=== PATIENT | female | born 1990 | race Caucasian/White ===

== ENCOUNTER 2021-09-06 12:14 | Inpatient (IN) | payer OTHER ==
[2021-09-06] MEDS ORDERED: SODIUM CHLORIDE 0.9% 1,000 ML IV STA ×2 (12:31→12:36)
--- NOTE | 2021-09-06 12:36 | ED ---
Overdose HPI - General Chief Complaint: Overdose Stated Complaint: Withdraws Time Seen by Provider: 09/06/21 12:20 Source: patient, EMS, RN notes reviewed Mode of arrival: EMS Limitations: altered mental status - History of Present Illness Initial Comments: 30-year-old female brought in by EMS from [facility] for possible overdose. Patient was responding only to painful stimulus and some verbal stimulus. She did maintain her vital functions however. No other information available at this time MD Complaint: other - Related Data Home Medications Medication Instructions Recorded Confirmed Acetaminophen Tab [Tylenol] 650 mg PO TID PRN 09/06/21 09/06/21 Calcium/Magnesium/Zinc/Vitamin D3 1 tab PO TID 09/06/21 09/06/21 334/134/5mg Chlorpheniramine Maleate 4 mg PO Q4H PRN 09/06/21 09/06/21 [Chlor-Trimeton] Ibuprofen [Motrin Ib] 600 mg PO Q6H PRN 09/06/21 09/06/21 Zofran 2mg/Ml Im Solution 4 mg IM Q6H PRN 09/06/21 09/06/21 cloNIDine HCL [Catapres] 0.1 mg PO Q4H PRN 09/06/21 09/06/21 ondansetron HCL [Zofran] 8 mg PO Q6H PRN 09/06/21 09/06/21 traZODone HCL 50 - 150 mg PO HS PRN 09/06/21 09/06/21 Allergies Allergy/AdvReac Type Severity Reaction Status Date / Time No Known Allergies Allergy Verified 09/06/21 14:08 Review of Systems ROS Statement: Those systems with pertinent positive or pertinent negative responses have been documented in the HPI. ROS Other: All systems not noted in ROS Statement are negative. Limitations: ROS unobtainable due to patients medical condition Past Medical History Past Medical History: No Reported History History of Any Multi-Drug Resistant Organisms: None Reported Past Surgical History: No Surgical Hx Reported Past Psychological History: No Psychological Hx Reported Smoking Status: Unknown if ever smoked Past Alcohol Use History: None Reported Past Drug Use History: None Reported General Exam - General Exam Comments Initial Comments: This is a well-developed well-nourished female who does respond to verbal questions and stimulus. She is unable or will not answer questions however Limitations: altered mental status General appearance: alert, lethargic Head exam: Present: atraumatic, normocephalic, normal inspection Eye exam: Present: normal appearance, PERRL, EOMI. Absent: scleral icterus, conjunctival injection, periorbital swelling ENT exam: Present: mucous membranes dry Neck exam: Present: normal inspection, full ROM, other (Stridor JVD or bruits). Absent: tenderness, meningismus, lymphadenopathy Respiratory exam: Present: normal lung sounds bilaterally. Absent: respiratory distress, wheezes, rales, rhonchi, stridor Cardiovascular Exam: Present: regular rate, normal rhythm, normal heart sounds. Absent: systolic murmur, diastolic murmur, rubs, gallop, clicks GI/Abdominal exam: Present: soft, normal bowel sounds. Absent: distended, tenderness, guarding, rebound, rigid Rectal exam: Present: deferred Extremities exam: Present: normal inspection, full ROM, normal capillary refill. Absent: tenderness, pedal edema, joint swelling, calf tenderness Back exam: Present: normal inspection Neurological exam: Present: alert, altered, CN II-XII intact Psychiatric exam: Present: depressed, flat affect Skin exam: Present: warm, dry, intact, normal color. Absent: rash Course Vital Signs 09/06/21 09/06/21 09/06/21 12:23 13:26 14:00 Temperature 98.1 F Pulse Rate 72 63 70 Respiratory 16 16 16 Rate Blood Pressure 153/77 125/83 132/94 O2 Sat by Pulse 95 96 96 Oximetry Medical Decision Making - Medical Decision Making Patient is more alert and sweats earlier however she is still demonstrating evidence of some disorientation of ideas. The drug screen is negative except for marijuana. She is demonstrating nausea vomiting I did discuss case with Dr. Vu patient be admitted with psychiatric consult tomorrow. - Lab Data Result diagrams: 09/06/21 13:30 09/06/21 13:30 Lab Results 09/06/21 09/06/21 09/06/21 Range/Units 13:00 13:00 13:30 WBC 15.2 H (3.8-10.6) k/uL RBC 5.41 H (3.80-5.40) m/uL Hgb 15.2 (11.4-16.0) gm/dL Hct 45.7 (34.0-46.0) % MCV 84.6 (80.0-100.0) fL MCH 28.1 (25.0-35.0) pg MCHC 33.2 (31.0-37.0) g/dL RDW 12.7 (11.5-15.5) % Plt Count 373 (150-450) k/uL MPV 6.8 Neutrophils % 86 % Lymphocytes % 9 % Monocytes % 3 % Eosinophils % 1 % Basophils % 0 % Neutrophils # 13.1 H (1.3-7.7) k/uL Lymphocytes # 1.4 (1.0-4.8) k/uL Monocytes # 0.5 (0-1.0) k/uL Eosinophils # 0.1 (0-0.7) k/uL Basophils # 0.0 (0-0.2) k/uL PT (9.0-12.0) sec INR (<1.2) Sodium (137-145) mmol/L Potassium (3.5-5.1) mmol/L Chloride (98-107) mmol/L Carbon Dioxide (22-30) mmol/L Anion Gap mmol/L BUN (7-17) mg/dL Creatinine (0.52-1.04) mg/dL Est GFR (CKD-EPI)AfAm (>60 ml/min/1.73 sqM) Est GFR (CKD-EPI)NonAf (>60 ml/min/1.73 sqM) Glucose (74-99) mg/dL Plasma Lactic Acid Eduardo (0.7-2.0) mmol/L Calcium (8.4-10.2) mg/dL Total Bilirubin (0.2-1.3) mg/dL AST (14-36) U/L ALT (4-34) U/L Alkaline Phosphatase (38-126) U/L Total Protein (6.3-8.2) g/dL Albumin (3.5-5.0) g/dL Urine HCG, Qual Not Detected (Not Detectd) Salicylates mg/dL Urine Opiates Screen Not Detected (NotDetected) Ur Oxycodone Screen Not Detected (NotDetected) Urine Methadone Screen Not Detected (NotDetected) Ur Propoxyphene Screen Not Detected (NotDetected) Acetaminophen ug/mL Ur Barbiturates Screen Not Detected (NotDetected) U Tricyclic Antidepress Not Detected (NotDetected) Ur Phencyclidine Scrn Not Detected (NotDetected) Ur Amphetamines Screen Not Detected (NotDetected) U Methamphetamines Scrn Not Detected (NotDetected) U Benzodiazepines Scrn Not Detected (NotDetected) Urine Cocaine Screen Not Detected (NotDetected) U Marijuana (THC) Screen Detected H (NotDetected) Serum Alcohol mg/dL 09/06/21 09/06/21 09/06/21 Range/Units 13:30 13:30 13:30 WBC (3.8-10.6) k/uL RBC (3.80-5.40) m/uL Hgb (11.4-16.0) gm/dL Hct (34.0-46.0) % MCV (80.0-100.0) fL MCH (25.0-35.0) pg MCHC (31.0-37.0) g/dL RDW (11.5-15.5) % Plt Count (150-450) k/uL MPV Neutrophils % % Lymphocytes % % Monocytes % % Eosinophils % % Basophils % % Neutrophils # (1.3-7.7) k/uL Lymphocytes # (1.0-4.8) k/uL Monocytes # (0-1.0) k/uL Eosinophils # (0-0.7) k/uL Basophils # (0-0.2) k/uL PT 12.3 H (9.0-12.0) sec INR 1.2 H (<1.2) Sodium 138 (137-145) mmol/L Potassium 3.3 L (3.5-5.1) mmol/L Chloride 101 (98-107) mmol/L Carbon Dioxide 25 (22-30) mmol/L Anion Gap 12 mmol/L BUN 20 H (7-17) mg/dL Creatinine 0.49 L (0.52-1.04) mg/dL Est GFR (CKD-EPI)AfAm >90 (>60 ml/min/1.73 sqM) Est GFR (CKD-EPI)NonAf >90 (>60 ml/min/1.73 sqM) Glucose 123 H (74-99) mg/dL Plasma Lactic Acid Eduardo 1.6 (0.7-2.0) mmol/L Calcium 9.6 (8.4-10.2) mg/dL Total Bilirubin 1.8 H (0.2-1.3) mg/dL AST 22 (14-36) U/L ALT 17 (4-34) U/L Alkaline Phosphatase 80 (38-126) U/L Total Protein 7.6 (6.3-8.2) g/dL Albumin 4.8 (3.5-5.0) g/dL Urine HCG, Qual (Not Detectd) Salicylates <1.0 mg/dL Urine Opiates Screen (NotDetected) Ur Oxycodone Screen (NotDetected) Urine Methadone Screen (NotDetected) Ur Propoxyphene Screen (NotDetected) Acetaminophen <10.0 ug/mL Ur Barbiturates Screen (NotDetected) U Tricyclic Antidepress (NotDetected) Ur Phencyclidine Scrn (NotDetected) Ur Amphetamines Screen (NotDetected) U Methamphetamines Scrn (NotDetected) U Benzodiazepines Scrn (NotDetected) Urine Cocaine Screen (NotDetected) U Marijuana (THC) Screen (NotDetected) Serum Alcohol <10 mg/dL - EKG Data -: EKG Interpreted by Me EKG shows normal: sinus rhythm EKG Comments: Sinus rhythm rate 65 ME interval 114 QRS 90 QT since QTC 432/449 this is a normal-appearing EKG - Radiology Data Radiology results: report reviewed (Imaging reviewed no acute findings.), image reviewed Disposition Clinical Impression: Drug overdose, Altered mental status, Dehydration Disposition: ADMITTED IP TO THIS [facility] Condition: Fair Referrals: None,Stated [Primary Care Provider] - 1-2 days
--- NOTE | 2021-09-06 13:15 | XR ---
EXAMINATION TYPE: XR chest 1V portable DATE OF EXAM: 09/06/2021 COMPARISON: NONE HISTORY: Lethargy and weakness. TECHNIQUE: Single frontal upright view of the chest is obtained. FINDINGS: There is no focal air space opacity, pleural effusion, or pneumothorax seen. The cardiac silhouette size is upper limits of normal. Overlying EKG leads. The osseous structures are intact. IMPRESSION: No acute process.
--- NOTE | 2021-09-06 13:16 | XR ---
EXAMINATION TYPE: XR KUB portable DATE OF EXAM: 09/06/2021 1:07 PM CLINICAL HISTORY: Weakness. TECHNIQUE: Two supine KUB images of the abdomen are obtained. COMPARISON: None. FINDINGS: Scattered gas is seen in non-distended small bowel loops. Gas and fecal material is seen in non-distended colon. Metallic IUD projects over the left pelvis. Visualized osseous structures are i ntact. Lung bases are clear. IMPRESSION: Overall nonobstructive bowel gas pattern.
[2021-09-06 13:54] LABS: Amphetamine Screen,Urine Not Detected (NotDetected); Barbiturate Screen,Urine Not Detected (NotDetected); Benzodiazepines Screen,Urine Not Detected (NotDetected); Cocaine Screen,Urine Not Detected (NotDetected); Methadone Screen, Urine Not Detected (NotDetected); Opiate Screen,Urine Not Detected (NotDetected); Oxycodone Screen, Urine Not Detected (NotDetected); Phencyclidine Screen,Urine Not Detected (NotDetected); Tricyclic Antidepressant,Urine Not Detected (NotDetected); Urn Cannabinoid Scrn Detected (NotDetected)
[2021-09-06 14:04] LABS: Basophils % (A) 0 %; Eosinophils # (A) 0.1 k/uL (0-0.7); Eosinophils % (A) 1 %; HCT 45.7 % (34.0-46.0); HGB 15.2 gm/dL (11.4-16.0); Lymphocytes # (A) 1.4 k/uL (1.0-4.8); Lymphocytes % (A) 9 %; MCH 28.1 pg (25.0-35.0); MCHC 33.2 g/dL (31.0-37.0); MCV 84.6 fL (80.0-100.0); Mean Platelet Volume 6.8; Monocytes # (A) 0.5 k/uL (0-1.0); Monocytes % (A) 3 %; Neutrophils # (A) 13.1 k/uL (1.3-7.7); Neutrophils % (A) 86 %; Platelet Count 373 k/uL (150-450); RBC 5.41 m/uL (3.80-5.40); RDW 12.7 % (11.5-15.5); WBC 15.2 k/uL (3.8-10.6)
[2021-09-06 14:08] LABS: ALT 17 U/L (4-34); AST 22 U/L (14-36); Acetaminophen <10.0 ug/mL; African American GFR (CKD) >90 (>60 ml/min/1.73 sqM); Albumin 4.8 g/dL (3.5-5.0); Alcohol <10 mg/dL; Alkaline Phosphatase 80 U/L (38-126); Anion Gap 12 mmol/L; Blood Urea Nitrogen 20 mg/dL (7-17); Calcium 9.6 mg/dL (8.4-10.2); Carbon Dioxide 25 mmol/L (22-30); Chloride 101 mmol/L (98-107); Glucose 123 mg/dL (74-99); Non-African American GFR(CKD) >90 (>60 ml/min/1.73 sqM); Potassium 3.3 mmol/L (3.5-5.1); Salicylate <1.0 mg/dL; Sodium 138 mmol/L (137-145); Total Bilirubin 1.8 mg/dL (0.2-1.3); Total Protein 7.6 g/dL (6.3-8.2)
[2021-09-06 14:13] LABS: INR 1.2 (<1.2); Prothrombin Time 12.3 sec (9.0-12.0)
--- NOTE | 2021-09-06 14:22 | CT ---
EXAMINATION TYPE: CT brain wo con DATE OF EXAM: 09/06/2021 COMPARISON: None. HISTORY: ams CT DLP: 1068.4 mGycm. Automated Exposure Control for Dose Reduction was Utilized. TECHNIQUE: CT scan of the head is performed without contrast. FINDINGS: There is no acute intracranial hemorrhage, mass effect, or midline shift identified. The ventricles and sulci are within normal limits in size. Dawn-white matter differentiation is maintain ed. The calvarium is intact. The globes are intact and the visualized sinuses are clear. IMPRESSION: No acute intracranial hemorrhage or midline shift is seen.
[2021-09-06] MEDS ORDERED: NALOXONE 0.4 MG/ML 1 ML VIAL IV PRN (15:49)
[2021-09-06] MEDS ORDERED: ONDANSETRON 4 MG/2 ML VIAL IVP STA (15:54)
[2021-09-06] MEDS: SODIUM CHLORIDE 0.9% 1,000 ML IV SCH (16:03)
[2021-09-06 17:51] LABS: Appearance,Urine Cloudy (Clear); Bacteria,Urine Rare /hpf; Bilirubin,Urine Negative (Negative); Blood,Urine Negative (Negative); Calcium Oxalate Crystals,Urine Many /hpf; Color,Urine Yellow; Glucose,Urine (UA) Trace (Negative); Ketones,Urine 4+ (Negative); Leukocyte Esterase,Urine Negative (Negative); Mucus,Urine Many /hpf; Nitrite,Urine Negative (Negative); Protein,Urine 1+ (Negative); RBC,Urine 6 /hpf (0-5); Specific Gravity,Urine 1.035 (1.001-1.035); Squamous Epithelial Cell,Urine 2 /hpf (0-4); WBC,Urine 6 /hpf (0-5)
[2021-09-06] MEDS: LORazepam 2 MG/ML INJ IV PRN (18:26)
--- NOTE | 2021-09-06 18:41 | HP ---
HISTORY AND PHYSICAL DATE OF SERVICE: 09/06/2021. CHIEF COMPLAINT: Withdrawal symptoms, overdose. HISTORY OF PRESENT ILLNESS: This is a 30-year-old woman with a past medical history of no significant medical illness apparently not being by primary physician in outpatient setting presented to [facility] for rehab today. The patient was thought to have some overdose. Patient was confused. The patient had some vomiting. Patient was only responding to painful stimuli. The patient was taken to [facility] for further evaluation and treatment. Currently the patient is jittery and stuporous, not able to give a coherent history. White count is 15.2 and THC is positive. Serum alcohol less than 10. The patient admitted for evaluation and treatment. Details cannot be taken because of change in mental status. A CT scan of the brain was normal. Chest x-ray was also normal. Most of the history was taken from my discussion with staff and discussion with the ER physician and review of chart. PAST MEDICAL HISTORY: No significant medical illness or cardiovascular illness. History of hypertension. Patient admits to using methamphetamines. MEDICATIONS: Home medications are trazodone, Zofran, Catapres, ibuprofen, Tylenol. Doses are reviewed. ALLERGIES: None. HISTORY: Family history, social history and review of systems could not be taken from the patient. PHYSICAL EXAMINATION: Patient is stuporous. Pulse is 70, blood pressure 130/94, respirations 16, temperature 98.1, pulse ox 98% on room air. HEENT: Conjunctivae normal. NECK: No JVD. CARDIOVASCULAR: S1 and S2. LUNGS: Breath sounds diminished at the bases. Scattered rhonchi. ABDOMEN: Soft nontender. LEGS: No edema. NEWSPAPER WRITER: Higher functions as mentioned. Moves all extremities. LYMPHATICS: No lymph node enlargement. SKIN: Some skin lesions in the lower part of the face. JOINTS: No active deformity. LABS: WBC 15.8, hemoglobin 15.2, and INR 1.2. Sodium 130, potassium 3.3. TSH positive. ASSESSMENT: 1. Possible substance overdosage as well as withdrawal syndrome of undetermined substances. 2. Increased WBC for sepsis. 3. Hypokalemia. 4. Increased random blood glucose. 5. Increased bilirubin. 6. THC positive. 7. Hypertension possibly. 8. Possible underlying psychiatric illness. 9. Full code. RECOMMENDATIONS: In this 30-year-old woman who presented with multiple complex issues, we will monitor the patient closely, continue the current medications. Recommend p.r.n. Ativan. Otherwise recommend empiric antibiotics. Cultures. Psychiatric consultation. DVT prophylaxis. Proton pump inhibitors. Prognosis guarded because of multiple complex medical issues. Further recommendations to follow. We will hold off the anti-psychotic medications also. Guarded prognosis. Further recommendations to follow. LEANDRA / YUN: [id number] /
[2021-09-06] MEDS ORDERED: Potassium Replacement Protocol 1 EACH MISC MISCELLANE PRN (18:49)
[2021-09-06] MEDS: POTASSIUM CHLORIDE ER 20 MEQ TAB.ER PO SCH (22:13)
[2021-09-06] MEDS: PANTOPRAZOLE 40 MG/10 ML VIAL IVP SCH (22:13)
[2021-09-06] MEDS: HEPARIN SODIUM,PORCINE/PF 5,000 UNIT/0.5 ML SYRINGE SQ SCH (22:14)
[2021-09-07] MEDS: SODIUM CHLORIDE 0.9% 1,000 ML IV SCH ×4 (02:09→23:53)
[2021-09-07] MEDS: POTASSIUM CHLORIDE ER 20 MEQ TAB.ER PO SCH ×5 (02:09→21:50)
[2021-09-07] MEDS: PANTOPRAZOLE 40 MG/10 ML VIAL IVP SCH ×2 (08:36→21:50)
[2021-09-07] MEDS: LORazepam 2 MG/ML INJ IV PRN (08:36)
[2021-09-07] MEDS: HEPARIN SODIUM,PORCINE/PF 5,000 UNIT/0.5 ML SYRINGE SQ SCH ×2 (08:37→21:50)
[2021-09-07 09:04] LABS: ALT 15 U/L (4-34); AST 21 U/L (14-36); African American GFR (CKD) >90 (>60 ml/min/1.73 sqM); Albumin 4.1 g/dL (3.5-5.0); Albumin/Globulin Ratio 1.6; Alkaline Phosphatase 68 U/L (38-126); Anion Gap 13 mmol/L; Blood Urea Nitrogen 16 mg/dL (7-17); Calcium 8.6 mg/dL (8.4-10.2); Carbon Dioxide 18 mmol/L (22-30); Chloride 105 mmol/L (98-107); Globulin 2.6 g/dL; Glucose 115 mg/dL (74-99); Non-African American GFR(CKD) >90 (>60 ml/min/1.73 sqM); Potassium 3.2 mmol/L (3.5-5.1); Sodium 136 mmol/L (137-145); Total Bilirubin 2.5 mg/dL (0.2-1.3); Total Protein 6.7 g/dL (6.3-8.2)
[2021-09-07 09:13] LABS: Basophils % (A) 0 %; Eosinophils % (A) 0 %; HCT 42.8 % (34.0-46.0); HGB 14.3 gm/dL (11.4-16.0); INR 1.2 (<1.2); Lymphocytes # (A) 1.7 k/uL (1.0-4.8); Lymphocytes % (A) 12 %; MCH 28.7 pg (25.0-35.0); MCHC 33.4 g/dL (31.0-37.0); MCV 85.8 fL (80.0-100.0); Mean Platelet Volume 7.3; Monocytes # (A) 0.7 k/uL (0-1.0); Monocytes % (A) 5 %; Neutrophils # (A) 11.1 k/uL (1.3-7.7); Neutrophils % (A) 82 %; Platelet Count 309 k/uL (150-450); Prothrombin Time 12.1 sec (9.0-12.0); RBC 4.98 m/uL (3.80-5.40); RDW 12.8 % (11.5-15.5); WBC 13.6 k/uL (3.8-10.6)
[2021-09-07] MEDS ORDERED: Potassium Replacement Protocol 1 EACH MISC MISCELLANE PRN ×3 (09:44→18:33)
[2021-09-07] MEDS ORDERED: Magnesium Replacement Protocol 1 EACH MISC MISCELLANE PRN ×2 (13:05→17:39)
[2021-09-07] MEDS: ONDANSETRON 4 MG/2 ML VIAL IVP PRN ×2 (14:02→23:54)
[2021-09-07] MEDS ORDERED: ZIPRASIDONE 20 MG VIAL IM PRN (14:14)
--- NOTE | 2021-09-07 14:21 | P.CN ---
Psychiatric Consult - . Consult date: 09/07/21 Consult:: 09/07/21 14:15 IDENTIFYING DATA: This patient is a 30-year-old female currently lives in a house with her mother. REASON FOR REFERRAL: Psychiatry was consulted for "flight of ideas, overdose". HISTORY OF PRESENT ILLNESS: The patient presented to the hospital by EMS from [place] for an apparent overdose. Patient was responsive to pain stimuli only. She was nauseous and vomiting when she arrived. Her white blood cell count was elevated and ANC was elevated as well. Patient Z UDS positive for THC. Patient's computed tomography scan of her head showed no acute changes. Patient was seen lying in her bed today with a sitter at her side. She was responding to her name and commands and screen writer however was having her eyes closed and was blinking at times. She was guarded/evasive. She had a poverty of content. She claims that "nothing happened" when asked about the events that occurred prior to her coming into the hospital. She spoke about "bringing a seizure back" however was a logical at times and rambled. She was fairly concrete. She denied taking any medications at home. She states her mood is "not good". She is denying any anxiety today. She called minimal commands. She states that her sleep is not adequate . At this time patient denies any current suicidal or homical ideations, intent or plan. Patient denies any auditory, visual hallucinations and denies any paranoia or delusions. Patients admits to using marijuana only. PAST PSYCHIATRIC HISTORY: Patient has an unknown psychiatric history. Patient denies being on any psychiatric medications, however does have trazodone listed in her home medications. Patient denies any previous psychiatric hospitalizations. Patient denies any psychiatric outpatient follow-up. Patient denies any history of suicide attempts in the past. PAST MEDICAL HISTORY: denies. ALLERGIES: as per EMR. CHEMICAL DEPENDENCY HISTORY: as per HPI. FAMILY PSYCHIATRIC/SUBSTANCE USE HISTORY: denies SOCIAL HISTORY: Patient was born and raised in [facility]. She states that she did some college. 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 She claims that he currently lives in a house with her mother. She is currently single.. MENTAL STATUS EXAM: General Appearance: Patient appears to be laying in bed, blinking her eyes repeatedly, stated age is alert, guarded at times. Patient appears to have poor hygiene and grooming wearing hospital gown with poor eye contact. Behavior: Patient is calmly lying in bed without any agitated behavior. Uncooperative at times Speech: Patient's speech is fluent and nonpressured. Soft tone Mood/Affect: Patient reports their mood is "not good", affect is congruent and constricted Suicidality/Homicidality: Patient denies having any suicidal or homicidal ideation intent or plan. Perceptions: Patient denies any visual hallucinations and denies any auditory hallucinations Though content/process: [place], poverty of content. Illogical at times with loose associations. Memory and concentration: AOX3, grossly intact for the purposes of this session. Can spell "WORLD" backwards Judgment and insight: poor IMPRESSIONS: Mood disorder unspecified Cannabis use disorder PLAN: -At this time patient psychiatry will continue to follow along to see if patient needs to be admitted psychiatrically. Patient does appear to be fairly lethargic and not yet appropriate for inpatient psychiatric transfer. -Would recommend the following medication changes/additions: Abilify 5 mg daily for mood stabilization. Trazodone 50 mg daily at bedtime for insomnia/mood. Ativan 1 mg 3 times a day when necessary for anxiety. Geodon 20 mg twice a day IM for severe agitation. -Can discontinue 1:1 sitter at this time as patient is not currently an imminent threat to themselves -Communicated plan to patient's nurse -Will continue to follow along -Please contact with any questions.
[2021-09-07] MEDS: LORazepam 1 MG TAB PO PRN (15:09)
[2021-09-07] MEDS: ARIPiprazole 5 MG TAB PO SCH (15:09)
[2021-09-07] MEDS: MAGNESIUM SULFATE-D5W PMX 1 GM in DEXTROSE/WATER 1 100ML.BAG IVPB SCH ×2 (17:52→21:50)
[2021-09-07] MEDS: ACETAMINOPHEN TAB 325 MG TAB PO PRN (17:52)
[2021-09-07] MEDS: traZODone HCL 50 MG TAB PO SCH (21:50)
--- NOTE | 2021-09-07 22:30 | PN ---
PROGRESS NOTE DATE OF SERVICE: 09/07/2021 This 30-year-old woman who was admitted with significant withdrawal symptoms continues to be confused. No chest pain. No palpitations. No fever. Psychiatry is following the patient. PHYSICAL EXAMINATION: Patient is conscious, confused. Pulse 58, blood pressure 120/76, respiration 18, temperature 99.4, pulse ox 98% on room air. HEENT: Conjunctivae normal. NECK: No jugular venous distention. CARDIOVASCULAR: S1, S2 muffled. RESPIRATION: Breath sounds diminished at the bases. A few scattered rhonchi. ABDOMEN: Soft, nontender. LEGS: No edema. No swelling. NERVOUS SYSTEM: Diffusely weak. LABS: WBC 13.7, hemoglobin 14.3. Potassium 3.2 and 3.5. THC is positive. COVID-19 is positive. ASSESSMENT: 1. Possible multiple substance overdose as well as withdrawal symptoms of undetermined significance. 2. Metabolic encephalopathy, possibly acute. 3. Increased white count with possible sepsis. 4. Hyponatremia. 5. Hypokalemia. 6. Increased random glucose. 7. Increased bilirubin. 8. THC positive. 9. Hypertension possibly. 10.Possible underlying psychiatric illnesses. 11.Mood disorder, unspecified. 12.FULL CODE. RECOMMENDATIONS AND DISCUSSION: I recommend to continue current medications, continue with symptomatic treatment. Repeat labs. Monitor closely. Prognosis guarded. Further recommendations to follow. MMODL / IJN: [id number] /
[2021-09-08] MEDS: SODIUM CHLORIDE 0.9% 1,000 ML IV SCH ×2 (00:13→17:55)
[2021-09-08 00:48] LABS: Glucose,Whole Blood 118 mg/dL (75-99)
[2021-09-08] MEDS ORDERED: LORazepam 2 MG/ML INJ IV STA (01:00)
[2021-09-08 01:48] LABS: AST 30 U/L (14-36); African American GFR (CKD) >90 (>60 ml/min/1.73 sqM); Albumin 4.5 g/dL (3.5-5.0); Albumin/Globulin Ratio 1.6; Alkaline Phosphatase 74 U/L (38-126); Anion Gap 18 mmol/L; Blood Urea Nitrogen 8 mg/dL (7-17); Carbon Dioxide 13 mmol/L (22-30); Chloride 105 mmol/L (98-107); Globulin 2.8 g/dL; Glucose 131 mg/dL (74-99); Non-African American GFR(CKD) >90 (>60 ml/min/1.73 sqM); Potassium 3.3 mmol/L (3.5-5.1); Sodium 136 mmol/L (137-145); Total Protein 7.3 g/dL (6.3-8.2)
[2021-09-08 01:55] LABS: ALT 24 U/L (4-34)
--- NOTE | 2021-09-08 04:20 | P.EN ---
A team called on this patient for changes in her mental status and tonic contractions patient symptoms started about an hour after receiving Geodon, she is warm to the touch and RN starting cold compressors initial concern was for neuroleptic malignant syndrome patient symptoms are inconsistent and improves with distraction Temp wnl HR 60s BP systolic 120s oxygen sat 100% patient rolling her eyes down and resists opening her eyes, she also resists moving her extremities but again with distraction im able to move her extremities without any increase in tone (no parkinsonian type of spasticity , no lead pipe spasticity) CK ordered , however, CK MB was done and was unremarkable with pain stimulation , she localizes and makes brief eye contact and voices feeling pain patient given a dose of ativan continue close monitoring bed side sitter for safety ordered follow up psych recommendations at this time it is less likely that patient is having seizure activity or neuroleptic malignant syndrome , continue to monitor most likely diagnosis is mood disorder and behavioral changes
[2021-09-08] MEDS ORDERED: Potassium Replacement Protocol 1 EACH MISC MISCELLANE PRN (07:34)
[2021-09-08 08:01] LABS: Basophils % (A) 0 %; Eosinophils % (A) 0 %; HCT 41.5 % (34.0-46.0); HGB 14.1 gm/dL (11.4-16.0); Lymphocytes # (A) 2.5 k/uL (1.0-4.8); Lymphocytes % (A) 18 %; MCH 28.2 pg (25.0-35.0); Mean Platelet Volume 8.6; Monocytes # (A) 0.8 k/uL (0-1.0); Monocytes % (A) 6 %; Neutrophils % (A) 74 %; Platelet Count 296 k/uL (150-450); RDW 12.4 % (11.5-15.5); WBC 13.5 k/uL (3.8-10.6)
[2021-09-08 08:02] LABS: African American GFR (CKD) >90 (>60 ml/min/1.73 sqM); Anion Gap 9 mmol/L; Blood Urea Nitrogen 10 mg/dL (7-17); Calcium 9.2 mg/dL (8.4-10.2); Carbon Dioxide 20 mmol/L (22-30); Chloride 109 mmol/L (98-107); Creatine Kinase 252 U/L (30-135); Glucose 103 mg/dL (74-99); Magnesium 2.4 mg/dL (1.6-2.3); Non-African American GFR(CKD) >90 (>60 ml/min/1.73 sqM); Sodium 138 mmol/L (137-145)
[2021-09-08 08:06] LABS: Potassium 5.2 mmol/L (3.5-5.1)
[2021-09-08] MEDS: PANTOPRAZOLE 40 MG/10 ML VIAL IVP SCH ×2 (09:02→22:43)
[2021-09-08] MEDS: ARIPiprazole 5 MG TAB PO SCH (09:02)
[2021-09-08] MEDS: POTASSIUM CHLORIDE ER 20 MEQ TAB.ER PO SCH ×2 (09:02→11:23)
[2021-09-08] MEDS: HEPARIN SODIUM,PORCINE/PF 5,000 UNIT/0.5 ML SYRINGE SQ SCH ×2 (09:11→22:44)
--- NOTE | 2021-09-08 13:57 | P.PN ---
Progress Note - Text Progress Note Date: 09/08/21 Interval History: Patient was seen today for psychiatric follow-up regarding patient's psychiatric condition. Patient continues to be lying in bed blinking and unable to keep her eyes open. She is fairly directable during conversation. She was attending to cooperate. She continues to minimize her need for medications and also for being in the hospital. She states that she stopped she feels "fine". She claims that she does not need medications and is continuing to deny an overdose and suicide attempt at home. She is denying any anxiety today. She states that she apparently last night. At this time patient denies any suicidal or homical ideations, intent or plan. Patient denies any auditory, visual hallucinations and denies any paranoia or delusions. Patient denies any side effects from the medications and has been compliant with meds. Mental Status Exam: General Appearance: Patient appears to be laying in bed, blinking her eyes repeatedly, stated age is alert, guarded at times. Patient appears to have poor hygiene and grooming wearing hospital gown with poor eye contact. Behavior: Patient is calmly lying in bed without any agitated behavior. Uncooperative Speech: Patient's speech is fluent and nonpressured. Soft tone Mood/Affect: Patient reports their mood is "ok", affect is congruent and constricted Suicidality/Homicidality: Patient denies having any suicidal or homicidal ideation intent or plan. Perceptions: Patient denies any visual hallucinations and denies any auditory hallucinations Though content/process: [place], poverty of content. More logical today. Poor insight. Memory and concentration: AOX3, grossly intact for the purposes of this session. Judgment and insight: poor IMPRESSIONS: Mood disorder unspecified Cannabis use disorder PLAN: -At this time it is unclear why patient is not able to get up out of bed and open her eyes and if there is any underlying neurological issue going on at this time. Psychiatry will continue to follow along and see if patient does need inpatient psychiatric treatment. -Would recommend the following medication changes/additions: Continue with Abilify 5 mg daily for mood stabilization. Trazodone 50 mg daily at bedtime for insomnia/mood. Ativan 1 mg 3 times a day when necessary for anxiety. Geodon 20 mg twice a day IM for severe agitation. -Will continue to follow along -Please contact with any questions.
[2021-09-08] MEDS: LORazepam 1 MG TAB PO PRN ×2 (15:58→23:36)
--- NOTE | 2021-09-08 17:11 | PN ---
PROGRESS NOTE DATE OF SERVICE: 09/08/2021 This 30-year-old woman who was admitted with multiple substance abuse also had Geodon yesterday because of restlessness, and subsequently A Team was cold for contractions, possibly a reaction to Geodon. No chest pain. No palpitations. No fever. PHYSICAL EXAMINATION: Alert and oriented x1. Pulse 79, blood pressure 146/88, respiration 18, temperature 99.5, pulse ox 97% on room air. HEENT: Conjunctivae normal. NECK: No jugular venous distention. CARDIOVASCULAR: S1, S2 muffled. RESPIRATION: Breath sounds diminished at the bases. A few scattered rhonchi. ABDOMEN: Soft, nontender. LEGS: No edema. No swelling. NERVOUS SYSTEM: No focal deficit. LABS: WBC 13.5, sodium 138, potassium 5.2. Otherwise, creatine kinase is 252. ASSESSMENT: 1. Multiple substance overdose as well as withdrawal symptoms. 2. Acute metabolic encephalopathy. 3. Change in mental status. 4. Increased white count with possible sepsis, on empiric antibiotics. 5. Hyponatremia. 6. Hypocalcemia. 7. Increased random glucose. 8. Increased bilirubin. 9. THC positive. 10.Hypertension. 11.Possible underlying psychiatric illness with mood disorder, unspecified. 12.FULL CODE. RECOMMENDATIONS AND DISCUSSION: I recommend to continue current medications, continue with symptomatic treatment. Continue with antibiotics. Repeat labs. Otherwise, the patient has some mild hyperkalemia. Psychiatry to see the patient. The patient also had a CT of the brain. The cultures are negative, as mentioned earlier. Further recommendations to follow. MMODL / IJN: [id number] / PREETHI
[2021-09-08] MEDS: traZODone HCL 50 MG TAB PO SCH (22:44)
[2021-09-08] MEDS: ACETAMINOPHEN TAB 325 MG TAB PO PRN (23:36)
[2021-09-09] MEDS: SODIUM CHLORIDE 0.9% 1,000 ML IV SCH ×5 (01:17→22:39)
[2021-09-09] MEDS: PANTOPRAZOLE 40 MG TABLET PO SCH ×2 (08:42→18:05)
[2021-09-09] MEDS: HEPARIN SODIUM,PORCINE/PF 5,000 UNIT/0.5 ML SYRINGE SQ SCH ×2 (08:42→20:39)
[2021-09-09] MEDS ORDERED: ARIPiprazole 15 MG TAB PO SCH (09:00)
--- NOTE | 2021-09-09 13:52 | P.PN ---
Progress Note - Text Progress Note Date: 09/09/21 Interval History: Patient was seen today for psychiatric follow-up regarding patient's psychiatric condition. Patient continues to be lying in bed blinking her eyes however was able to open them and appeared to be more engaged with communications writer today. She continues to minimize her need for being in the hospital and states that she does not know why she was brought in. She denied any problems overnight and states that she slept fairly well. She does claim that she has mild sedation during the day. She is fairly directable during conversation. She was attempting to cooperate. He is denying any depression or anxiety at this time. She is denying any anxiety today. She states that she apparently last night. At this time patient denies any suicidal or homical ideations, intent or plan. Patient denies any auditory, visual hallucinations and denies any paranoia or delusions. Patient denies any side effects from the medications and has been compliant with meds. Electrical Control Assembler attempted to call patient's boyfriend Raz as this was her only contact at [phone], He states that he is "sick of it" and states that the patient uses several different drugs including pills and heroin and has overdosed in the passed. he states that she was trying to escape from rehab and called him several times to pick her up. He states "she should go back to rehab" and claims that he will not be picking her up from the hospital. He states that she spends "$2500 a month" on heroin and always suffers from weakness and confusion when she is "high on drugs". Mental Status Exam: General Appearance: Patient appears to be laying in bed, blinking her eyes less today. she appears to be her stated age is more alert, more cooperative today however is vague. Patient appears to have improving hygiene and grooming wearing hospital gown with poor eye contact. Behavior: Patient is calmly lying in bed without any agitated behavior. more cooeprative today. Speech: Patient's speech is fluent and nonpressured. Soft tone Mood/Affect: Patient reports their mood is "fine", affect is congruent and constricted Suicidality/Homicidality: Patient denies having any suicidal or homicidal ideation intent or plan. Perceptions: Patient denies any visual hallucinations and denies any auditory hallucinations Though content/process: [place], poverty of content. More logical today Memory and concentration: AOX3, grossly intact for the purposes of this session. Judgment and insight: chronically poor IMPRESSIONS: Mood disorder unspecified Cannabis use disorder PLAN: -At this time patient DOES NOT meet criteria for inpatient psychaitric hospitalization. -Would recommend the following medication changes/additions: increased Abilify 10 mg daily for mood stabilization. decreased Trazodone 25 mg daily at bedtime for insomnia/mood. Ativan 1 mg 3 times a day when necessary for anxiety. -At this time psychiatry will sign off on patients case. SW to work with patient to go back to rehab upon discharge. Consider OT/PT for help regain patients strength. -Please contact with any questions.
[2021-09-09 13:57] LABS: HCG,Qualitative Serum Not Detected
[2021-09-09 13:58] LABS: African American GFR (CKD) >90 (>60 ml/min/1.73 sqM); Anion Gap 10 mmol/L; Blood Urea Nitrogen 6 mg/dL (7-17); Calcium 9.4 mg/dL (8.4-10.2); Carbon Dioxide 23 mmol/L (22-30); Chloride 103 mmol/L (98-107); Glucose 120 mg/dL (74-99); Non-African American GFR(CKD) >90 (>60 ml/min/1.73 sqM); Potassium 3.3 mmol/L (3.5-5.1); Sodium 136 mmol/L (137-145)
[2021-09-09 14:12] LABS: Basophils # (A) 0.1 k/uL (0-0.2); Basophils % (A) 0 %; Eosinophils # (A) 0.1 k/uL (0-0.7); Eosinophils % (A) 1 %; HCT 49.7 % (34.0-46.0); HGB 16.9 gm/dL (11.4-16.0); Lymphocytes # (A) 2.5 k/uL (1.0-4.8); Lymphocytes % (A) 16 %; MCH 28.8 pg (25.0-35.0); MCHC 34.1 g/dL (31.0-37.0); MCV 84.4 fL (80.0-100.0); Mean Platelet Volume 7.5; Monocytes # (A) 0.9 k/uL (0-1.0); Monocytes % (A) 5 %; Neutrophils # (A) 12.6 k/uL (1.3-7.7); Neutrophils % (A) 77 %; Platelet Count 355 k/uL (150-450); RBC 5.88 m/uL (3.80-5.40); RDW 12.5 % (11.5-15.5); WBC 16.2 k/uL (3.8-10.6)
[2021-09-09] MEDS: traZODone HCL 50 MG TAB PO SCH (20:39)
--- NOTE | 2021-09-09 21:56 | P.PN ---
Subjective This is a pleasant 50 years old female with multiple problems presents with altered mental status possible drug overdose. She took unknown substance at [place]. Patient was admitted with psych team consult. Psychiatric team adjusted medication and signed off today Also there was suspicion of UTI and patient was started on ceftriaxone, urine culture is negative. Infectious disease team were consulted This morning patient was more drowsy although she knows she is in the hospital, her urine. She knows the date and the president but she was very sleepy and drowsy she has history of seizure but not on antiseizure medication. test was negative. Neuro exam nonfocal. Vitals and labs are stable. Leukocytosis went up to 13.6 up to 16. Currently she is on ceftriaxone, normal saline at 130, lower to 50 mL per hour. Abilify is increased by psychiatrist and lower dose of trazodone EKG showing QTC of 449 and normal sinus rhythm at 65. Serum test is negative Objective - Vital Signs Vital signs: Vital Signs Temp 98.5 F 09/09/21 13:55 Pulse 54 L 09/09/21 13:55 Resp 17 09/09/21 13:55 BP 134/88 09/09/21 13:55 Pulse Ox 96 09/09/21 13:55 Intake & Output 09/08/21 09/09/21 09/09/21 18:59 06:59 18:59 Intake Total 0 1740 Balance 0 1740 Intake: Intake, IV Titration 1500 Amount Sodium Chloride 0.9% 1, 1500 000 ml @ 130 mls/hr IV . Q7H42M [facility] Rx#:[id number] Oral 0 240 Other: Voiding Method Toilet Diaper # Voids 0 - Exam -GENERAL: The patient is alert and oriented x3, drowsy, not in any acute distress. Well developed, well nourished. HEENT: Pupils are round and equally reacting to light. EOMI. No scleral icterus. No conjunctival pallor. Normocephalic, atraumatic. No pharyngeal erythema. No thyromegaly. CARDIOVASCULAR: S1 and S2 present. No murmurs, rubs, or gallops. PULMONARY: Chest is clear to auscultation, no wheezing or crackles. ABDOMEN: Soft, nontender, nondistended, normoactive bowel sounds. No palpable organomegaly. MUSCULOSKELETAL: No joint swelling or deformity. EXTREMITIES: No cyanosis, clubbing, or pedal edema. NEUROLOGICAL: Gross neurological examination did not reveal any focal deficits. SKIN: No rashes. no petechiae. - Labs CBC & Chem 7: 09/09/21 12:59 09/09/21 12:59 Labs: Abnormal Lab Results - Last 24 Hours (Table) 09/09/21 09/09/21 Range/Units 12:59 12:59 WBC 16.2 H (3.8-10.6) k/uL RBC 5.88 H (3.80-5.40) m/uL Hgb 16.9 H (11.4-16.0) gm/dL Hct 49.7 H (34.0-46.0) % Neutrophils # 12.6 H (1.3-7.7) k/uL Sodium 136 L (137-145) mmol/L Potassium 3.3 L (3.5-5.1) mmol/L BUN 6 L (7-17) mg/dL Creatinine 0.41 L (0.52-1.04) mg/dL Glucose 120 H (74-99) mg/dL Assessment and Plan Assessment: Drug overdose, patient has been cleared by psychiatrist for discharge The resident's, neurological causes Leukocytosis. UTI is suspected. Urine culture is negative Plan: This is a pleasant 30 years old female who presents with drug overdose. Psychiatric team signed off. Continue with psych medication per psychiatrist Patient currently on ceftriaxone. Consult infectious disease team. Neurology consult Labs and medication were reviewed.. Continue same treatment. Continue with symptomatic treatment. Resume home medication. Monitor lytes and vitals. DVT and GI prophylaxis. Further recommendationsas per clinical course of the patie nt DVT prophylaxis: Subcutaneous heparin GI Prophylaxis: Pepcid PT/OT: Pending
[2021-09-09] MEDS: LORazepam 1 MG TAB PO PRN (22:37)
[2021-09-10] MEDS: ACETAMINOPHEN TAB 325 MG TAB PO PRN ×2 (04:19→21:41)
[2021-09-10 07:02] LABS: African American GFR (CKD) >90 (>60 ml/min/1.73 sqM); Anion Gap 11 mmol/L; Blood Urea Nitrogen 6 mg/dL (7-17); Calcium 9.5 mg/dL (8.4-10.2); Carbon Dioxide 22 mmol/L (22-30); Chloride 103 mmol/L (98-107); Glucose 111 mg/dL (74-99); Magnesium 1.8 mg/dL (1.6-2.3); Non-African American GFR(CKD) >90 (>60 ml/min/1.73 sqM); Potassium 3.7 mmol/L (3.5-5.1); Sodium 136 mmol/L (137-145)
--- NOTE | 2021-09-10 09:04 | P.CNNES ---
History of Present Illness Consult date: 09/09/21 Requesting physician: Donavan E Turner Reason for Consult: drowsiness, possible seizure History of Present Illness: Patient is a 30-year-old female came to the hospital by ambulance on 09/06/2021 at 12:14 PM, for evaluation of altered mental status. Patient currently residing in [facility] since 08/30/2021. On EMS arrival, patient was sitting in a chair in the nursing station, staff reporting the patient took "10 packs of marijuana" and also stated that she had "10 gel packs inserted". Patient was alert however not answer any questions appropriately. She will look at you if you call her name. Patient did not appear to have any respiratory distress or shortness of breath. Patient's vital signs at the scene was blood pressure 146/82, pulse of 93, respiration 18, saturation 97% and blood glucose 149. On arrival blood pressure was 1 5677, pulse rate 72, temperature 98.1. Patient 's blood test shows WBC 15.2 hemoglobin 15.2 and platelets 296. WBC has gone up to 16.2. Sodium 136 potassium 3.3, normal renal functions. Hepatic panel normal. TSH normal, urine drug screen positive for marijuana. Blood alcohol level negative. Martin virus PCR negative. Patient's home medications include Zofran, clonidine, chlorpheniramine, calcium, trazodone. Apparently patient was seen by psychiatry, and was prescribed Geodon as needed for agitation or acute psychosis. After receiving one dose of Geodon, an hour later, patient developed stiffening of her arms and legs, "clonic contractions", seizure-like activity, uncertain how long it lasted for. Initial concern was about neuroleptic malignant syndrome, but on her meters were negative. Patient was given a dose of Ativan. Neurology was consulted. Patient states she has history of couple seizures about a year ago. She does not believe it was related to substance abuse. She has not seen a neurologist for reported seizur es, and currently does not take any seizure medication. Patient has smoked 1 pack per day for 10 years. She has been intermittently doing vaping as well. Denies any alcohol use. Patient states that she has been abusing fentanyl, which she snorts, 1 g and a half, every 2 hours. She came to rehab facility [place] for rehab for opiate abuse. Patient also states that she takes "[place]", which she believes is in " thing". She has snorted heroin in the past. She has never done IV drug use. Never used any crack cocaine. Review of Systems Denies any chest pain shortness of breath wheezing or cough. Denies any abdominal pain nausea vomiting diarrhea. She is tremulous. Denies any numbness tingling focal weakness. Denies any problem with the vision, hoarseness, sore throat, dysphagia. No rash. No weight loss. No fever or chills. Past Medical History Past Medical History: No Reported History History of Any Multi-Drug Resistant Organisms: None Reported Past Surgical History: No Surgical Hx Reported Past Psychological History: No Psychological Hx Reported Smoking Status: Current every day smoker Past Alcohol Use History: None Reported Past Drug Use History: None Reported Medications and Allergies Home Medications Medication Instructions Recorded Confirmed Type Acetaminophen Tab [Tylenol] 650 mg PO TID PRN 09/06/21 09/06/21 History Calcium/Magnesium/Zinc/Vitamin D3 1 tab PO TID 09/06/21 09/06/21 History 334/134/5mg Chlorpheniramine Maleate 4 mg PO Q4H PRN 09/06/21 09/06/21 History [Chlor-Trimeton] Ibuprofen [Motrin Ib] 600 mg PO Q6H PRN 09/06/21 09/06/21 History Zofran 2mg/Ml Im Solution 4 mg IM Q6H PRN 09/06/21 09/06/21 History cloNIDine HCL [Catapres] 0.1 mg PO Q4H PRN 09/06/21 09/06/21 History ondansetron HCL [Zofran] 8 mg PO Q6H PRN 09/06/21 09/06/21 History traZODone HCL 50 - 150 mg PO HS PRN 09/06/21 09/06/21 History Allergies Allergy/AdvReac Type Severity Reaction Status Date / Time No Known Allergies Allergy Verified 09/06/21 14:08 Physical Examination - Vital Signs Vital Signs: Vital Signs Temp Pulse Pulse Resp BP Pulse Ox 09/09/21 13:55 98.5 F 54 L 17 134/88 96 09/09/21 07:58 95 09/09/21 07:49 99.0 F 108 H 19 133/90 95 09/09/21 01:47 99.2 F 76 18 145/92 97 09/08/21 20:00 74 76 18 09/08/21 19:15 99.6 F 76 20 148/83 95 Intake and Output 09/09/21 09/09/21 09/09/21 06:59 14:59 22:59 Intake Total 1740 Balance 1740 Intake: Intake, IV Titration 1500 Amount Sodium Chloride 0.9% 1, 1500 000 ml @ 130 mls/hr IV . Q7H42M [facility] Rx#:[id number] Oral 240 Other: Voiding Method Diaper Patient is a young female, in no acute distress. She is tremulous. Patient is alert awake oriented to time place and person. Patient knows it is 09/09/2021, fall season and that she is in the Hospital in [facility]. Patient knows her age and date of and name of the current president. Speech and language functions are normal. Attention, concentration and fund of knowledge is adequate. On cranial examination, pupils are round and reacting to light, visual cantor are full on confrontation, extraocular muscles are intact with no nystagmus. Face is symmetric, tongue protrudes to the midline. Palatal elevation and sensation normal, hearing and shoulder shrug normal, facial sensation normal. Shoulder shrug normal. On muscle strength testing, her strength of professor of psychiatry is 4-4+, hip flexion is 4+ to 5- bilaterally. Otherwise the strength is normal in arms and legs. There is no pronator drift. She does have myoclonic jerks of outstretched hands. Deep tendon reflexes are symmetric and plantars are withdrawal bilaterally. Sensory to touch is equal with no neglect. Cerebellar function showed no ataxia for [id number] testing. Tone and bulk of muscles normal. Gait not checked. On general examination, there is no carotid bruit or murmur, S1-S2 audible. Abdomen is soft nontender. Chest is clear. Peripheral pulses are present. No edema. Results - Laboratory Findings CBC and BMP: 09/09/21 12:59 09/10/21 06:24 Abnormal Lab Findings: Abnormal Labs 09/06/21 09/06/21 09/06/21 13:00 13:00 13:30 WBC 15.2 H RBC 5.41 H Hgb Hct Neutrophils # 13.1 H PT INR Sodium Potassium Chloride Carbon Dioxide BUN Creatinine Glucose POC Glucose (mg/dL) Magnesium Total Bilirubin Creatine Kinase Urine Appearance Cloudy H Urine Protein 1+ H Urine Glucose (UA) Trace H Urine Ketones 4+ H Urine RBC 6 H Urine WBC 6 H Calcium Oxalate Crystal Many H Urine Bacteria Rare H Urine Mucus Many H U Marijuana (THC) Screen Detected H 09/06/21 09/06/21 09/07/21 13:30 13:30 07:56 WBC RBC Hgb Hct Neutrophils # PT 12.3 H 12.1 H INR 1.2 H 1.2 H Sodium Potassium 3.3 L Chloride Carbon Dioxide BUN 20 H Creatinine 0.49 L Glucose 123 H POC Glucose (mg/dL) Magnesium Total Bilirubin 1.8 H Creatine Kinase Urine Appearance Urine Protein Urine Glucose (UA) Urine Ketones Urine RBC Urine WBC Calcium Oxalate Crystal Urine Bacteria Urine Mucus U Marijuana (THC) Screen 09/07/21 09/07/21 09/08/21 07:56 07:56 00:46 WBC 13.6 H RBC Hgb Hct Neutrophils # 11.1 H PT INR Sodium 136 L Potassium 3.2 L Chloride Carbon Dioxide 18 L BUN Creatinine 0.42 L Glucose 115 H POC Glucose (mg/dL) 118 H Magnesium Total Bilirubin 2.5 H Creatine Kinase Urine Appearance Urine Protein Urine Glucose (UA) Urine Ketones Urine RBC Urine WBC Calcium Oxalate Crystal Urine Bacteria Urine Mucus U Marijuana (THC) Screen 09/08/21 09/08/21 09/08/21 01:10 06:31 06:31 WBC 13.5 H RBC Hgb Hct Neutrophils # 10.0 H PT INR Sodium 136 L Potassium 3.3 L 5.2 H Chloride 109 H Carbon Dioxide 13 L 20 L BUN Creatinine 0.44 L 0.47 L Glucose 131 H 103 H POC Glucose (mg/dL) Magnesium 2.4 H Total Bilirubin 3.0 H Creatine Kinase 252 H Urine Appearance Urine Protein Urine Glucose (UA) Urine Ketones Urine RBC Urine WBC Calcium Oxalate Crystal Urine Bacteria Urine Mucus U Marijuana (THC) Screen 09/09/21 09/09/21 12:59 12:59 WBC 16.2 H RBC 5.88 H Hgb 16.9 H Hct 49.7 H Neutrophils # 12.6 H PT INR Sodium 136 L Potassium 3.3 L Chloride Carbon Dioxide BUN 6 L Creatinine 0.41 L Glucose 120 H POC Glucose (mg/dL) Magnesium Total Bilirubin Creatine Kinase Urine Appearance Urine Protein Urine Glucose (UA) Urine Ketones Urine RBC Urine WBC Calcium Oxalate Crystal Urine Bacteria Urine Mucus U Marijuana (THC) Screen Assessment and Plan Assessment: * Seizure-like activity, possible side effect of Geodon. * Opiate abuse, undergoing rehab. * History of polysubstance abuse. * Metabolic encephalopathy due to above. * Tobacco use Plan: * Stop Geodon, as patient had side effects about one hour after taking Geodon. * Patient states she has history of couple seizures in the past, about a year ago. She does not believe those seizures were related to substance abuse. We will check EEG to rule out any epileptiform activity. We will consider antiepileptic medication, only if EEG shows any epileptiform activity. * Symptomatic treatment for opiate withdrawals. * Patient was informed of [place] state law of no driving, unless seizure free for 6 months, no climbing ladders, operate dangerous machinery or unsupervised swimming.
[2021-09-10] MEDS: ARIPiprazole 10 MG TAB PO SCH (09:26)
[2021-09-10] MEDS: HEPARIN SODIUM,PORCINE/PF 5,000 UNIT/0.5 ML SYRINGE SQ SCH ×2 (09:26→21:41)
[2021-09-10] MEDS: PANTOPRAZOLE 40 MG TABLET PO SCH ×2 (09:26→17:39)
[2021-09-10 11:16] LABS: Basophils # (A) 0.03 X 10*3/uL (0.00-0.10); Basophils % (A) 0.2 %; Eosinophils # (A) 0.13 X 10*3/uL (0.04-0.35); Eosinophils % (A) 0.8 %; HCT 50.9 % (37.2-46.3); Lymphocytes # (A) 3.51 X 10*3/uL (0.90-5.00); Lymphocytes % (A) 20.7 %; MCH 27.3 pg (27.0-32.0); MCHC 33.4 g/dL (32.0-37.0); MCV 81.8 fL (80.0-97.0); Mean Platelet Volume 10.9 fL (9.5-12.2); Monocytes # (A) 1.07 X 10*3/uL (0.20-1.00); Monocytes % (A) 6.3 %; Neutrophils # (A) 12.14 X 10*3/uL (1.80-7.70); Neutrophils % (A) 71.5 %; Platelet Count 412 X 10*3/uL (140-440); RBC 6.22 X 10*6/uL (4.10-5.20); RDW 12.9 % (11.5-14.5); WBC 16.96 X 10*3/uL (4.50-10.00)
--- NOTE | 2021-09-10 12:57 | P.PN ---
Subjective This is a pleasant 50 years old female with multiple problems presents with altered mental status possible drug overdose. She took unknown substance at [place]. Patient was admitted with psych team consult. Psychiatric team adjusted medication and signed off today Also there was suspicion of UTI and patient was started on ceftriaxone, urine culture is negative. Infectious disease team were consulted This morning patient was more drowsy although she knows she is in the hospital, her urine. She knows the date and the president but she was very sleepy and drowsy she has history of seizure but not on antiseizure medication. test was negative. Neuro exam nonfocal. Vitals and labs are stable. Leukocytosis went up to 13.6 up to 16. Currently she is on ceftriaxone, normal saline at 130, lower to 50 mL per hour. Abilify is increased by psychiatrist and lower dose of trazodone EKG showing QTC of 449 and normal sinus rhythm at 65. Serum test is negative 09/10/2021 Patient is less drowsy today, she is awake and appropriate but she feels lethargic. She feels her ears are followed both sides. But denies any other physical complaints. No headache or weakness. No chest pain or dyspnea. No abdominal pain or vomiting. Hemoglobin is stable. She still have leukocytosis 16.2 and went up to 16.9. EEG is pending. Neurology input is appreciated, suspected side effects from Geodon with seizure- like activity and it was stopped per neurology recommendation. We would lower her Klonopin 1 mg down to 0.5 mg, she got 1 dose of Klonopin yesterday. Extremities on ceftriaxone for suspected UTI, infectious disease consult Objective - Vital Signs Vital signs: Vital Signs Temp 98.7 F 09/10/21 08:00 Pulse 75 09/10/21 08:00 Resp 16 09/10/21 08:00 BP 131/90 09/10/21 08:00 Pulse Ox 98 09/10/21 09:00 Intake & Output 09/09/21 09/10/21 09/10/21 18:59 06:59 18:59 Intake Total 900 Output Total 3 Balance -3 900 Intake: Oral 900 Output: Urine 3 Other: Voiding Method Diaper Diaper # Voids 8 # Bowel Movements 0 - Exam -GENERAL: The patient is alert and oriented x3, drowsy, not in any acute distress. Well developed, well nourished. HEENT: Pupils are round and equally reacting to light. EOMI. No scleral icterus. No conjunctival pallor. Normocephalic, atraumatic. No pharyngeal erythema. No thyromegaly. CARDIOVASCULAR: S1 and S2 present. No murmurs, rubs, or gallops. PULMONARY: Chest is clear to auscultation, no wheezing or crackles. ABDOMEN: Soft, nontender, nondistended, normoactive bowel sounds. No palpable organomegaly. MUSCULOSKELETAL: No joint swelling or deformity. EXTREMITIES: No cyanosis, clubbing, or pedal edema. NEUROLOGICAL: Gross neurological examination did not reveal any focal deficits. SKIN: No rashes. no petechiae. - Labs CBC & Chem 7: 09/10/21 06:24 09/10/21 06:24 Labs: Abnormal Lab Results - Last 24 Hours (Table) 09/09/21 09/09/21 09/10/21 Range/Units 12:59 12:59 06:24 WBC 16.2 H 16.96 H (3.8-10.6) k/uL RBC 5.88 H 6.22 H (3.80-5.40) m/uL Hgb 16.9 H 17.0 H (11.4-16.0) gm/dL Hct 49.7 H 50.9 H (34.0-46.0) % Immature Gran # 0.08 H (0.00-0.04) X 10*3/uL Neutrophils # 12.6 H 12.14 H (1.3-7.7) k/uL Monocytes # 1.07 H (0.20-1.00) X 10*3/uL Sodium 136 L (137-145) mmol/L Potassium 3.3 L (3.5-5.1) mmol/L BUN 6 L (7-17) mg/dL Creatinine 0.41 L (0.52-1.04) mg/dL Glucose 120 H (74-99) mg/dL 09/10/21 Range/Units 06:24 WBC (3.8-10.6) k/uL RBC (3.80-5.40) m/uL Hgb (11.4-16.0) gm/dL Hct (34.0-46.0) % Immature Gran # (0.00-0.04) X 10*3/uL Neutrophils # (1.3-7.7) k/uL Monocytes # (0.20-1.00) X 10*3/uL Sodium 136 L (137-145) mmol/L Potassium (3.5-5.1) mmol/L BUN 6 L (7-17) mg/dL Creatinine 0.43 L (0.52-1.04) mg/dL Glucose 111 H (74-99) mg/dL Assessment and Plan Assessment: Drug overdose, patient has been cleared by psychiatrist for discharge drowsiness, possible seizure-like activity. Suspected due to Geodon side effects. Geodon stopped. Rule out seizure Leukocytosis. UTI is suspected. Urine culture is negative Plan: This is a pleasant 30 years old female who presents with drug overdose. Psychiatric team signed off. Continue with psych medication per psychiatrist. We will reconsult psychiatry Neurology input recommended EEG Patient currently on ceftriaxone. Consult infectious disease team. Labs and medication were reviewed.. Continue same treatment. Continue with symptomatic treatment. Resume home medication. Monitor lytes and vitals. DVT and GI prophylaxis. Further recommendationsas per clinical course of the patient DVT prophylaxis: Subcutaneous heparin GI Prophylaxis: Pepcid PT/OT: Pending
[2021-09-10] MEDS: LORazepam 0.5 MG TAB PO PRN ×2 (13:35→22:37)
--- NOTE | 2021-09-10 17:09 | EEG ---
ELECTROENCEPHALOGRAM REPORT DATE OF SERVICE: September 10, 2021 PREAMBLE: This is a 30-year-old female with history of possible seizures, came with opiate abuse and withdrawal, with some seizure-like activity. EEG FINDINGS: This is a 21 channel digital EEG with video component, recorded utilizing 10/20 international system with referential and bipolar montages. The background consists of somewhat disorganized, mixed frequencies of 9-10 hertz alpha, intermixed with some fast frequency as well as some moderate amplitude 3-4 hertz theta activity seen in bihemispheric region. Background does not seem to be clearly reactive to eye opening and closing. Infrequent myoclonic jerks were noted during this study, characterized by the presence of high amplitude generalized activity, which may be myogenic or perhaps ?polyspike in nature. The patient had frequent myoclonic jerks noted of the jaw, occasionally of the legs or the whole body periodically. Some stage 2 sleep was also seen with presence of sleep spindles. Photic stimulation was not performed. Hyperventilation not done. The EKG channel showed no significant arrhythmia. IMPRESSION: This is an abnormal EEG due to the background disorganization and mild slowing, consistent with encephalopathy or medication effect. Intermittent myoclonic jerks were noted mainly involving the jaw, and occasionally of the legs or the body, which were sometimes associated with high amplitude brief myogenic discharge versus ?a polyspike. No electrographic seizure was otherwise recorded. May consider a prolonged EEG. LEANDRA / KATHY: [id number] / PREETHI
--- NOTE | 2021-09-10 17:30 | P.PN ---
Subjective Progress Note Date: 09/10/21 Patient was seen for a follow-up. Patient is laying comfortably in the bed. Patient states that she feels not very well, as she's been having panic attacks. Patient continues to be very jittery, tremulous, with some myoclonic jerks. Patient states she had some seizure this morning. Objective - Vital Signs Vital signs: Vital Signs Temp 98.4 F 09/10/21 14:00 Pulse 96 09/10/21 14:00 Resp 16 09/10/21 14:00 BP 131/85 09/10/21 14:00 Pulse Ox 95 09/10/21 14:00 Intake & Output 09/09/21 09/10/21 09/10/21 18:59 06:59 18:59 Intake Total 900 Output Total 3 Balance -3 900 Intake: Oral 900 Output: Urine 3 Other: Voiding Method Diaper Diaper # Voids 8 # Bowel Movements 0 - Exam Patient is alert and awake, laying comfortably in the bed, appears slightly anxious, slightly jittery. Having some intermittent myoclonic jerks. - Labs CBC & Chem 7: 09/10/21 06:24 09/10/21 06:24 Labs: Abnormal Lab Results - Last 24 Hours (Table) 09/10/21 09/10/21 Range/Units 06:24 06:24 WBC 16.96 H (4.50-10.00) X 10*3/uL RBC 6.22 H (4.10-5.20) X 10*6/uL Hgb 17.0 H (12.0-15.0) g/dL Hct 50.9 H (37.2-46.3) % Immature Gran # 0.08 H (0.00-0.04) X 10*3/uL Neutrophils # 12.14 H (1.80-7.70) X 10*3/uL Monocytes # 1.07 H (0.20-1.00) X 10*3/uL Sodium 136 L (137-145) mmol/L BUN 6 L (7-17) mg/dL Creatinine 0.43 L (0.52-1.04) mg/dL Glucose 111 H (74-99) mg/dL Assessment and Plan Assessment: * Seizure-like activity, possible side effect of Geodon. * History of possible seizure in the past. * Opiate abuse, undergoing rehab. * History of polysubstance abuse. * Metabolic encephalopathy due to above. * Tobacco use Plan: * Stop Geodon, as patient had side effects about one hour after taking Geodon. * Patient states she has history of couple seizures in the past, about a year ago. She does not believe those seizures were related to substance abuse. EEG revealed some background disorganization with slowing, suggestive of mild cerebral dysfunction. Patient also had intermittent myoclonic jerks noted during the EEG, during which there was high amplitude brief activity, which could be cerebral or myogenic in nature. Patient appears high risk for myoclonic seizures. We will start Keppra 500 mg twice a day for seizure prophylaxis. * Symptomatic treatment for opiate withdrawals. * Patient was informed of [place] state law of no driving, unless seizure free for 6 months, no climbing ladders, operate dangerous machinery or unsupervised swimming.
[2021-09-10] MEDS: traZODone HCL 50 MG TAB PO SCH (21:42)
[2021-09-10] MEDS: levETIRAcetam 500 MG TAB PO SCH (21:42)
--- NOTE | 2021-09-10 22:53 | P.CONS ---
History of Present Illness - Reason for Consult Consult date: 09/10/21 leukocytosis/UTI Requesting physician: Donavan E Sheet - Chief Complaint unresponsivness / weakness on arrival - History of Present Illness History of present illness : Patient is a 30-year-old female presenting to the ER 4 days ago on 09/06/2021 from [facility] for possible overdose patient was responding only to the painful stimuli and some verbal stimuli on presentation to the hospital patient on presentation to the hospital was afebrile and no significant fever has been recorded subsequently patient is currently 100% on room air patient did have vitamin D 15.2 on admission there came down however has been trending up now patient did have a normal creatinine liver enzymes are normal urine hCG was negative UA was mildly positive urine drug screen was positive for marijuana lowe PCR was negative patient did have a chest x-ray on admission no acute process CT of the brain was negative for any bleed infection was consulted stated concern for possible UTI and elevated white count patient herself is lethargic and not very good historian patient denies having any chest pain shortness of breath occasional cough some nausea but no vomiting and no diarrhea has been reported Review of system: Positive point has been mentioned in HPI complete review could not be obtained because of underlying mental status Past medical history : Reviewed, documented below Past surgical history : Reviewed, documented below Social history: Reviewed, documented below Medications: Reviewed, as documented below EXAMINATION: Vital sigans= Reviewed and documented below GENERAL DESCRIPTION: Middle-aged female lying in bed, no distress. No tachypnea or accessory muscle of respiration use. HEENT: Shows Pallor , no scleral icterus. Oral mucous membrane is dry. NECK: Trachea central, no thyromegaly. LUNGS: Unlabored breathing. Decreased breath sound at bases. No wheeze or crackle. HEART: S1, S2, regular rate and rhythm. ABDOMEN: Soft, no tenderness , guarding or rigidity EXTREMITIES: No edema of feet. SKIN: No rash, no masses palpable. NEUROLOGICAL: The patient is lethargic but arousable orientation could not be determined no neck rigidity LABS AND RADIOLOGY: Reviewed results see below Assessment : Patient with elevated white count in this patient admitted to hospital from inpatient drug rehab unit for drug overdose with the urine was positive for marijuana in this patient who did not have any fever initial work- up including a chest x-ray was negative urine was significantly positive and the patient seem to have worsening of the white count despite being on Rocephin for the last 4 days concern for possible aspiration pneumonitis and less likely abdominal source Plan: 1-we will obtain blood cultures CRP and procalcitonin 2-check a chest x-ray PA lateral if negative to obtain CT of abdominal pelvis 3-discontinue Rocephin 4-start the patient on Unasyn 3 g every 6 hours We will follow on clinical condition and cultures to further adjust medication if needed Thank you for this consultation we will follow the patient along with you Past Medical History Past Medical History: No Reported History History of Any Multi-Drug Resistant Organisms: None Reported Past Surgical History: No Surgical Hx Reported Past Psychological History: No Psychological Hx Reported Smoking Status: Current every day smoker Past Alcohol Use History: None Reported Past Drug Use History: None Reported Medications and Allergies Home Medications Medication Instructions Recorded Confirmed Type Acetaminophen Tab [Tylenol] 650 mg PO TID PRN 09/06/21 09/06/21 History Calcium/Magnesium/Zinc/Vitamin D3 1 tab PO TID 09/06/21 09/06/21 History 334/134/5mg Chlorpheniramine Maleate 4 mg PO Q4H PRN 09/06/21 09/06/21 History [Chlor-Trimeton] Ibuprofen [Motrin Ib] 600 mg PO Q6H PRN 09/06/21 09/06/21 History Zofran 2mg/Ml Im Solution 4 mg IM Q6H PRN 09/06/21 09/06/21 History cloNIDine HCL [Catapres] 0.1 mg PO Q4H PRN 09/06/21 09/06/21 History ondansetron HCL [Zofran] 8 mg PO Q6H PRN 09/06/21 09/06/21 History traZODone HCL 50 - 150 mg PO HS PRN 09/06/21 09/06/21 History Allergies Allergy/AdvReac Type Severity Reaction Status Date / Time No Known Allergies Allergy Verified 09/06/21 14:08 Physical Exam Vitals: Vital Signs Temp Pulse Pulse Resp BP Pulse Ox 09/10/21 09:00 98 09/10/21 08:00 98.7 F 75 16 131/90 98 09/10/21 02:11 99.3 F 82 125/78 96 09/09/21 20:00 99.6 F 74 68 18 135/93 98 10/18/21 13:55 98.5 F 54 L 17 134/88 96 Intake and Output 09/09/21 09/10/21 09/10/21 22:59 06:59 14:59 Intake Total 900 Output Total 3 Balance -3 900 Intake: Oral 900 Output: Urine 3 Other: Voiding Method Diaper # Voids 8 # Bowel Movements 0 Results CBC & Chem 7: 09/10/21 06:24 09/10/21 06:24 Labs: Abnormal Lab Results - Last 24 Hours (Table) 09/09/21 09/09/21 09/10/21 Range/Units 12:59 12:59 06:24 WBC 16.2 H (3.8-10.6) k/uL RBC 5.88 H (3.80-5.40) m/uL Hgb 16.9 H (11.4-16.0) gm/dL Hct 49.7 H (34.0-46.0) % Neutrophils # 12.6 H (1.3-7.7) k/uL Sodium 136 L 136 L (137-145) mmol/L Potassium 3.3 L (3.5-5.1) mmol/L BUN 6 L 6 L (7-17) mg/dL Creatinine 0.41 L 0.43 L (0.52-1.04) mg/dL Glucose 120 H 111 H (74-99) mg/dL
[2021-09-11] MEDS: AMPICILLIN-SULBACTAM 3 GM in SODIUM CHLORIDE 0.9% 100 ML IVPB SCH ×5 (02:36→23:55)
[2021-09-11] MEDS: SODIUM CHLORIDE 0.9% 1,000 ML IV SCH ×2 (02:36→22:30)
[2021-09-11] MEDS: LORazepam 0.5 MG TAB PO PRN (07:20)
--- NOTE | 2021-09-11 07:30 | XR ---
EXAMINATION TYPE: XR chest 2V DATE OF EXAM: 09/11/2021 COMPARISON: 09/06/2021 HISTORY: Chest pain TECHNIQUE: Frontal and lateral views of the chest are obtained. FINDINGS: There is no focal air space opacity. No evidence for pneumothorax. No pleural effusion. The cardiac silhouette size is within normal limits. The osseous structures are grossly intact. IMPRESSION: 1. No acute cardiopulmonary process.
[2021-09-11] MEDS: PANTOPRAZOLE 40 MG TABLET PO SCH ×2 (07:50→17:13)
[2021-09-11] MEDS: levETIRAcetam 500 MG TAB PO SCH ×2 (10:07→20:19)
[2021-09-11] MEDS: ARIPiprazole 10 MG TAB PO SCH (10:07)
[2021-09-11] MEDS: HEPARIN SODIUM,PORCINE/PF 5,000 UNIT/0.5 ML SYRINGE SQ SCH ×2 (10:09→20:20)
--- NOTE | 2021-09-11 12:04 | P.PN ---
Subjective This is a pleasant 50 years old female with multiple problems presents with altered mental status possible drug overdose. She took unknown substance at [place]. Patient was admitted with psych team consult. Psychiatric team adjusted medication and signed off today Also there was suspicion of UTI and patient was started on ceftriaxone, urine culture is negative. Infectious disease team were consulted This morning patient was more drowsy although she knows she is in the hospital, her urine. She knows the date and the president but she was very sleepy and drowsy she has history of seizure but not on antiseizure medication. test was negative. Neuro exam nonfocal. Vitals and labs are stable. Leukocytosis went up to 13.6 up to 16. Currently she is on ceftriaxone, normal saline at 130, lower to 50 mL per hour. Abilify is increased by psychiatrist and lower dose of trazodone EKG showing QTC of 449 and normal sinus rhythm at 65. Serum test is negative 09/10/2021 Patient is less drowsy today, she is awake and appropriate but she feels lethargic. She feels her ears are followed both sides. But denies any other physical complaints. No headache or weakness. No chest pain or dyspnea. No abdominal pain or vomiting. Hemoglobin is stable. She still have leukocytosis 16.2 and went up to 16.9. EEG is pending. Neurology input is appreciated, suspected side effects from Geodon with seizure- like activity and it was stopped per neurology recommendation. We would lower her Klonopin 1 mg down to 0.5 mg, she got 1 dose of Klonopin yesterday. Extremities on ceftriaxone for suspected UTI, infectious disease consult 09/11/2021 Today patient still lethargic and sleepy, she denies any specific symptoms. Her Klonopin was discontinued today. No further seizure-like activity. Patient was started on Keppra. EEG is negative. Vitals are stable. Poorcalcitonin and C-reactive protein are negative. Chest x-ray is negative. Patient was started on Unasyn. Also she was started on Keppra and normal saline at 50 mL per hour. Pending Discussed with the Staff Objective - Vital Signs Vital signs: Vital Signs Temp 98.4 F 09/11/21 08:00 Pulse 95 09/11/21 08:00 Resp 18 09/11/21 08:00 BP 134/83 09/11/21 08:00 Pulse Ox 96 09/11/21 08:00 Intake & Output 09/10/21 09/11/21 09/11/21 18:59 06:59 18:59 Intake Total 1730 Output Total 2500 Balance 1730 -2500 Intake: Intake, IV Titration 650 Amount Sodium Chloride 0.9% 1, 600 000 ml @ 50 mls/hr IV . Q20H [facility] Rx#:[id number] cefTRIAXone 1 gm In 50 Sodium Chloride 0.9% 50 ml @ 100 mls/hr IVPB Q24H [facility] Rx#:[id number] Oral 1080 Output: Urine 2500 Other: Voiding Method Bedside Commode Bedside Commode # Voids 3 10 2 # Bowel Movements 1 0 - Exam -GENERAL: The patient is alert and oriented x3, drowsy, not in any acute distress. Well developed, well nourished. HEENT: Pupils are round and equally reacting to light. EOMI. No scleral icterus. No conjunctival pallor. Normocephalic, atraumatic. No pharyngeal erythema. No thyromegaly. CARDIOVASCULAR: S1 and S2 present. No murmurs, rubs, or gallops. PULMONARY: Chest is clear to auscultation, no wheezing or crackles. ABDOMEN: Soft, nontender, nondistended, normoactive bowel sounds. No palpable organomegaly. MUSCULOSKELETAL: No joint swelling or deformity. EXTREMITIES: No cyanosis, clubbing, or pedal edema. NEUROLOGICAL: Gross neurological examination did not reveal any focal deficits. SKIN: No rashes. no petechiae. - Labs CBC & Chem 7: 09/10/21 06:24 09/10/21 06:24 Assessment and Plan Assessment: Drug overdose, patient has been cleared by psychiatrist for discharge drowsiness, possible seizure-like activity. Suspected due to Geodon side effects. Geodon stopped. Rule out seizure Possible seizure Leukocytosis. UTI is suspected. Urine culture is negative Plan: This is a pleasant 30 years old female who presents with drug overdose. Psychiatric team signed off. Continue with psych medication per psychiatrist. Neurology input appreciated and they follow the case Continue with infectious disease team recommendation. Currently she is on Unasyn. Blood culture are ordered and pending. Labs and medication were reviewed.. Continue same treatment. Continue with symptomatic treatment. Resume home medication. Monitor lytes and vitals. DVT and GI prophylaxis. Further recommendationsas per clinical course of the patient DVT prophylaxis: Subcutaneous heparin GI Prophylaxis: Pepcid PT/OT: Pending
--- NOTE | 2021-09-11 15:43 | P.PN ---
Subjective Progress Note Date: 09/11/21 Patient was seen for a follow-up. Patient is laying comfortably in the bed. Patient appears slightly somnolent. Patient states she feels okay. No seizures. She feels slightly unsteady while walking. Objective - Vital Signs Vital signs: Vital Signs Temp 97.8 F 09/11/21 12:40 Pulse 116 H 09/11/21 12:40 Resp 16 09/11/21 12:40 BP 129/88 09/11/21 12:40 Pulse Ox 97 09/11/21 12:40 Intake & Output 09/10/21 09/11/21 09/11/21 18:59 06:59 18:59 Intake Total 1730 Output Total 2500 Balance 1730 -2500 Intake: Intake, IV Titration 650 Amount Sodium Chloride 0.9% 1, 600 000 ml @ 50 mls/hr IV . Q20H [facility] Rx#:[id number] cefTRIAXone 1 gm In 50 Sodium Chloride 0.9% 50 ml @ 100 mls/hr IVPB Q24H [facility] Rx#:[id number] Oral 1080 Output: Urine 2500 Other: Voiding Method Bedside Commode Bedside Commode # Voids 3 10 2 # Bowel Movements 1 0 - Exam Patient is slightly somnolent. She does wake up, and answers appropriately and follows directions. Patient's cranial nerves are normal. Muscle strength is normal in the arms and legs. Reflexes are 2 in the lower limbs and plantars are withdrawal versus a bilaterally. No ataxia. Patient still has myotonic jerks of outstretched hands. - Labs CBC & Chem 7: 09/10/21 06:24 09/10/21 06:24 Assessment and Plan Assessment: * Seizure-like activity, possible side effect of Geodon. * Seizure disorder, abnormal EEG * Opiate abuse, undergoing rehab. * History of polysubstance abuse. * Metabolic encephalopathy due to above. * Tobacco use Plan: * Stop Geodon, as patient had side effects about one hour after taking Geodon. * Patient states she has history of couple seizures in the past, about a year ago. She does not believe those seizures were related to substance abuse. EEG revealed some background disorganization with slowing, suggestive of mild cerebral dysfunction. Patient also had intermittent myoclonic jerks noted during the EEG, during which there was high amplitude brief activity, which could be cerebral or myogenic in nature. Patient appears high risk for myoclonic seizures. We will start Keppra 500 mg twice a day for seizure prophylaxis. * We will check B12, folate, TSH, RPR, MMA, B6, B1 levels. * Symptomatic treatment for opiate withdrawals. * Patient was informed of [place] state law of no driving, unless seizure free for 6 months, no climbing ladders, operate dangerous machinery or unsupervised swimming.
--- NOTE | 2021-09-11 17:36 | PN ---
PROGRESS NOTE DATE OF SERVICE: 09/11/2021 REASON FOR FOLLOWUP: Leukocytosis. INTERVAL HISTORY: The patient is afebrile. The patient is more awake and alert today. She is breathing comfortably. The patient denies having any chest pain. Minimal cough. No abdominal pain or diarrhea. PHYSICAL EXAMINATION: Her blood pressure is 129/80 with a pulse of 116, temperature 97.9. She is 97% on room air. General description is a middle-aged female lying in bed in no distress. RESPIRATORY SYSTEM: Unlabored breathing. (Dictation ends here.) MMODL / IJN: [id number] /
--- NOTE | 2021-09-11 17:48 | PN ---
PROGRESS NOTE DATE OF SERVICE: 09/11/2021 REASON FOR FOLLOWUP: Leukocytosis. INTERVAL HISTORY: The patient is afebrile. The patient is more awake and alert today. She is breathing comfortably on room air. Denies any chest pain. Occasional cough. No abdominal pain or diarrhea. PHYSICAL EXAMINATION: Blood pressure 129/88 with a pulse of 113, temperature 97.8. She is 97% on room air. General description is a middle-aged female lying in bed in no distress. RESPIRATORY SYSTEM: Unlabored breathing. Clear to auscultation anteriorly. HEART: S1, S2. Regular rate and rhythm. ABDOMEN: Soft. No tenderness. LABS: Hemoglobin is 17, white count 16.96 creatinine 0.43. DIAGNOSTIC IMPRESSION AND PLAN: Patient with elevated white count in this patient admitted to hospital with possible drug overdose with concern for possible aspiration pneumonitis. However, chest x-ray came back negative. Will obtain a CT of abdomen and pelvis to rule out any abdominal pathology. Continue with Unasyn. Repeat CBC tomorrow. Continue supportive care. MMODL / IJN: [id number] /
[2021-09-11] MEDS: traZODone HCL 50 MG TAB PO SCH (20:20)
[2021-09-11] MEDS: ACETAMINOPHEN TAB 325 MG TAB PO PRN (20:23)
[2021-09-12] MEDS: ACETAMINOPHEN TAB 325 MG TAB PO PRN (02:02)
[2021-09-12 05:46] LABS: Folate, Serum 6.5 ng/mL (4.40-31.00)
[2021-09-12] MEDS: AMPICILLIN-SULBACTAM 3 GM in SODIUM CHLORIDE 0.9% 100 ML IVPB SCH ×3 (05:53→17:10)
[2021-09-12] MEDS: IOPAMIDOL CONTRAST (ORAL USE) VIAL PO PRN ×2 (07:41→08:45)
[2021-09-12] MEDS: PANTOPRAZOLE 40 MG TABLET PO SCH ×2 (07:45→17:10)
[2021-09-12] MEDS: HEPARIN SODIUM,PORCINE/PF 5,000 UNIT/0.5 ML SYRINGE SQ SCH ×2 (07:46→22:31)
[2021-09-12] MEDS: levETIRAcetam 500 MG TAB PO SCH ×2 (07:46→22:32)
[2021-09-12] MEDS: ARIPiprazole 10 MG TAB PO SCH (07:46)
[2021-09-12] MEDS: SODIUM CHLORIDE 0.9% 1,000 ML IV SCH (08:30)
[2021-09-12 09:09] LABS: Basophils # (A) 0.1 k/uL (0-0.2); Basophils % (A) 0 %; Eosinophils # (A) 0.2 k/uL (0-0.7); Eosinophils % (A) 1 %; HCT 47.4 % (34.0-46.0); HGB 15.9 gm/dL (11.4-16.0); Lymphocytes # (A) 3.1 k/uL (1.0-4.8); Lymphocytes % (A) 22 %; MCH 28.6 pg (25.0-35.0); MCHC 33.6 g/dL (31.0-37.0); MCV 85.1 fL (80.0-100.0); Mean Platelet Volume 6.9; Monocytes # (A) 0.5 k/uL (0-1.0); Monocytes % (A) 4 %; Neutrophils % (A) 71 %; Platelet Count 414 k/uL (150-450); RBC 5.58 m/uL (3.80-5.40); RDW 13.5 % (11.5-15.5); WBC 14.1 k/uL (3.8-10.6)
[2021-09-12 09:41] LABS: African American GFR (CKD) >90 (>60 ml/min/1.73 sqM); Anion Gap 12 mmol/L; Blood Urea Nitrogen 7 mg/dL (7-17); Calcium 9.6 mg/dL (8.4-10.2); Carbon Dioxide 22 mmol/L (22-30); Chloride 104 mmol/L (98-107); Glucose 124 mg/dL (74-99); Non-African American GFR(CKD) >90 (>60 ml/min/1.73 sqM); Sodium 138 mmol/L (137-145)
[2021-09-12 09:48] LABS: Potassium 3.5 mmol/L (3.5-5.1)
[2021-09-12] MEDS ORDERED: SODIUM CHLORIDE 0.65% NASAL SPRAY 44 ML BTL NASAL PRN (09:53)
--- NOTE | 2021-09-12 10:08 | CT ---
EXAMINATION TYPE: CT abdomen pelvis w con DATE OF EXAM: 09/12/2021 COMPARISON: None HISTORY: elevated WBC CT DLP: 1122.5 mGycm CONTRAST: CT scan of the abdomen and pelvis is performed with Oral Contrast and with IV Contrast, patient injec matty with 100 mL of Isovue 300. FINDINGS: LUNG BASES-: No visible nodule. No infiltrate. Minimal linear atelectasis left lower lobe. LIVER/GB: No calcified gallstones. No space occupying hepatic lesion. Biliary tree is of normal ca liber. PANCREAS: No inflammation. No distinct mass. SPLEEN: No splenic enlargement. No lesion seen. ADRENALS: No nodule. No thickening. KIDNEYS/BLADDER: No hydronephrosis. No nephrolithiasis. No distinct renal mass. Urinary bladder g rossly unremarkable. BOWEL: Normal appendix. Normal bowel caliber. No inflammation. Moderate fecal stasis. GENITAL ORGANS: No gross abnormality. LYMPH NODES: No greater than 1cm abdominal or pelvic lymph nodes are appreciated. AORTA: No significant abnormality. OSSEOUS STRUCTURES: No significant abnormality is seen. OTHER: No significant additional abnormality is seen. IMPRESSION: 1. No significant abnormality to account for the patient's symptoms.
[2021-09-12] MEDS ORDERED: BENZOCAINE/MENTHOL LOZENG 1 EACH LOZENGE MUCOUS MEM PRN (10:34)
[2021-09-12] MEDS: FLUTICASONE 50MCG/SPRAY NASAL 16GM EA NOSTRIL SCH (10:40)
[2021-09-12] MEDS ORDERED: CYANOCOBALAMIN 1,000 MCG/ML 1 ML VIAL IM ONE (12:00)
[2021-09-12] MEDS: FOLIC ACID 1 MG TAB PO SCH (12:09)
[2021-09-12 12:39] VITALS: BMI 27.3
--- NOTE | 2021-09-12 18:49 | PN ---
PROGRESS NOTE DATE OF SERVICE: 09/12/2021 REASON FOR FOLLOWUP: Leukocytosis. INTERVAL HISTORY: The patient is afebrile. The patient is breathing comfortably. Denies having any chest pain. No shortness of breath. No cough. No abdominal pain or diarrhea. PHYSICAL EXAMINATION: Blood pressure is 123/77 with a pulse of 83, temperature 98.1. She is 99% on room air. General description is a middle-aged female lying in bed in no distress. Respiratory system: Unlabored breathing, decreased breath sounds at the base, no wheeze. Heart S1, S2. Regular rate and rhythm. Abdomen soft, no tenderness. Extremities: No edema of the feet. LABS: Hemoglobin is 15.1, white count 14.1, creatinine 0.44. CT of abdomen and pelvis came back negative. DIAGNOSTIC IMPRESSION AND PLAN: Patient with elevated white count and this patient did have extensive workup and did not have any clear focus of infection. Culture has been negative. On empiric Unasyn, to continue. White count is trending down. Continue supportive care. MMODL / IJN: [id number] /
--- NOTE | 2021-09-12 21:53 | P.PN ---
Subjective This is a pleasant 50 years old female with multiple problems presents with altered mental status possible drug overdose. She took unknown substance at [place]. Patient was admitted with psych team consult. Psychiatric team adjusted medication and signed off today Also there was suspicion of UTI and patient was started on ceftriaxone, urine culture is negative. Infectious disease team were consulted This morning patient was more drowsy although she knows she is in the hospital, her urine. She knows the date and the president but she was very sleepy and drowsy she has history of seizure but not on antiseizure medication. test was negative. Neuro exam nonfocal. Vitals and labs are stable. Leukocytosis went up to 13.6 up to 16. Currently she is on ceftriaxone, normal saline at 130, lower to 50 mL per hour. Abilify is increased by psychiatrist and lower dose of trazodone EKG showing QTC of 449 and normal sinus rhythm at 65. Serum test is negative 09/10/2021 Patient is less drowsy today, she is awake and appropriate but she feels lethargic. She feels her ears are followed both sides. But denies any other physical complaints. No headache or weakness. No chest pain or dyspnea. No abdominal pain or vomiting. Hemoglobin is stable. She still have leukocytosis 16.2 and went up to 16.9. EEG is pending. Neurology input is appreciated, suspected side effects from Geodon with seizure- like activity and it was stopped per neurology recommendation. We would lower her Klonopin 1 mg down to 0.5 mg, she got 1 dose of Klonopin yesterday. Extremities on ceftriaxone for suspected UTI, infectious disease consult 09/11/2021 Today patient still lethargic and sleepy, she denies any specific symptoms. Her Klonopin was discontinued today. No further seizure-like activity. Patient was started on Keppra. EEG is negative. Vitals are stable. Poorcalcitonin and C-reactive protein are negative. Chest x-ray is negative. Patient was started on Unasyn. Also she was started on Keppra and normal saline at 50 mL per hour. Pending Discussed with the Staff 09/12/2021 pt is more awake this morning and sitting in chair , still somewhat lethargic but she is improving , she has extensive nasal perulent secretion in her nasal cavity and she feel significan pain around it which is the most likely source of infection , such kind of infection is usually treated with unasyn/augmentin and pt is showing improving with trending down leukocytosis, even her tachycardia improved significantly and HR is back to normal in 70-80 we will keep monitoring for now add flonase and nasal spray Objective - Vital Signs Vital signs: Vital Signs Temp 98.0 F 09/12/21 19:05 Pulse 76 09/12/21 19:05 Resp 16 09/12/21 19:05 BP 141/92 09/12/21 19:05 Pulse Ox 98 09/12/21 19:05 Intake & Output 09/12/21 09/12/21 09/13/21 06:59 18:59 06:59 Weight 79.379 kg Other: Voiding Method Bedside Commode # Voids 1 # Bowel Movements 1 - Exam -GENERAL: The patient is alert and oriented x3, less drowsy, not in any acute distress. Well developed, well nourished. -HEENT: Pupils are round and equally reacting to light. EOMI. No scleral icterus. No conjunctival pallor. Normocephalic, atraumatic. No pharyngeal erythema. No thyromegaly. purulent nasal discharge CARDIOVASCULAR: S1 and S2 present. No murmurs, rubs, or gallops. PULMONARY: Chest is clear to auscultation, no wheezing or crackles. ABDOMEN: Soft, nontender, nondistended, normoactive bowel sounds. No palpable organomegaly. MUSCULOSKELETAL: No joint swelling or deformity. EXTREMITIES: No cyanosis, clubbing, or pedal edema. NEUROLOGICAL: Gross neurological examination did not reveal any focal deficits. SKIN: No rashes. no petechiae. - Labs CBC & Chem 7: 09/12/21 08:38 09/12/21 08:38 Labs: Abnormal Lab Results - Last 24 Hours (Table) 09/12/21 09/12/21 Range/Units 08:38 08:38 WBC 14.1 H (3.8-10.6) k/uL RBC 5.58 H (3.80-5.40) m/uL Hct 47.4 H (34.0-46.0) % Neutrophils # 10.0 H (1.3-7.7) k/uL Creatinine 0.44 L (0.52-1.04) mg/dL Glucose 124 H (74-99) mg/dL Microbiology - Last 24 Hours (Table) 09/11/21 05:59 Blood Culture - Preliminary Blood No Growth after 24 hours Assessment and Plan Assessment: Drug overdose, patient has been cleared by psychiatrist for discharge acute bacterial rhinitis drowsiness, possible seizure-like activity. Suspected due to Geodon side effect s. Geodon stopped. Rule out seizure Possible seizure Leukocytosis. UTI is suspected. Urine culture is negative Plan: This is a pleasant 30 years old female who presents with drug overdose. Psychiatric team signed off. Continue with psych medication per psychiatrist. Neurology input appreciated and they follow the case Continue with infectious disease team recommendation. Currently she is on Unasyn. Blood culture are ordered and pending. add flonase and nasal spray Labs and medication were reviewed.. Continue same treatment. Continue with symptomatic treatment. Resume home medication. Monitor lytes and vitals. DVT and GI prophylaxis. Further recommendations as per clinical course of the patient DVT prophylaxis: Subcutaneous heparin GI Prophylaxis: Pepcid PT/OT: Pending
--- NOTE | 2021-09-12 22:15 | P.PN ---
Subjective Progress Note Date: 09/12/21 Patient was seen for a follow-up. Patient is laying comfortably in the bed. Patient is much more alert and awake. Patient appears less encephalopathic, less shaky. No seizures reported. Patient denies any problem with vision, numbness tingling. Denies headache. Patient has been walking with a walker. Objective - Vital Signs Vital signs: Vital Signs Temp 98.0 F 09/12/21 19:05 Pulse 76 09/12/21 19:05 Resp 16 09/12/21 19:05 BP 141/92 09/12/21 19:05 Pulse Ox 98 09/12/21 19:05 Intake & Output 09/12/21 09/12/21 09/13/21 06:59 18:59 06:59 Weight 79.379 kg Other: Voiding Method Bedside Commode # Voids 1 # Bowel Movements 1 - Exam Patient is alert and awake. Speech and language functions are normal. Comprehension intact. Patient's cranial nerves are normal. Muscle strength is normal in the arms and legs. Reflexes are 2 in the lower limbs and plantars are withdrawal. No ataxia. Patient's myoclonic jerks have much improved. - Labs CBC & Chem 7: 09/13/21 03:30 09/12/21 08:38 Labs: Abnormal Lab Results - Last 24 Hours (Table) 09/12/21 09/12/21 Range/Units 08:38 08:38 WBC 14.1 H (3.8-10.6) k/uL RBC 5.58 H (3.80-5.40) m/uL Hct 47.4 H (34.0-46.0) % Neutrophils # 10.0 H (1.3-7.7) k/uL Creatinine 0.44 L (0.52-1.04) mg/dL Glucose 124 H (74-99) mg/dL Microbiology - Last 24 Hours (Table) 09/11/21 05:59 Blood Culture - Preliminary Blood No Growth after 24 hours Assessment and Plan Assessment: * Seizure-like activity, possible side effect of Geodon. * Seizure disorder, mildly abnormal EEG * Opiate abuse, undergoing rehab. * History of polysubstance abuse. * Metabolic encephalopathy due to above. * Leukocytosis, unclear etiology. * Tobacco use Plan: * Stop Geodon, as patient had developed side effects about one hour after taking Geodon. * Patient states she has history of couple seizures in the past, about a year ago. She does not believe those seizures were related to substance abuse. EEG revealed some background disorganization with slowing, suggestive of mild cerebral dysfunction. Patient also had intermittent myoclonic jerks noted during the EEG, during which there was high amplitude brief activity, which could be cerebral or myogenic in nature. Patient appears high risk for myoclonic seizures. We will start Keppra 500 mg twice a day for seizure prophylaxis. * B12 366, folate 6.5, TSH 1.110, RPR nonreactive, MMA 0.10, B6 normal 15, B1 also normal 76. Patient started on B12 and folate. * Symptomatic treatment for opiate withdrawals. * CT of the sinuses showed trace mucosal thickening in the ethmoid air cells. Leftward deviation of the anterior nasal septum. 1 cm soft tissue thickening versus adherent mucous/the brace interposed between the right side of the nasal septum and right inferior turbinate. It nasal discharge persists, consider direct visualization. * Patient has leukocytosis, infectious disease following. Patient is on Unasyn. * PT OT evaluate gait. Neurologically clear, if cleared by PT and OT. * Patient was informed of [place] state law of no driving, unless seizure free for 6 months, no climbing ladders, operate dangerous machinery or unsupervised swimming.
[2021-09-12] MEDS: traZODone HCL 50 MG TAB PO SCH (22:32)
[2021-09-13] MEDS: AMPICILLIN-SULBACTAM 3 GM in SODIUM CHLORIDE 0.9% 100 ML IVPB SCH ×4 (01:10→16:46)
[2021-09-13] MEDS: FLUTICASONE 50MCG/SPRAY NASAL 16GM EA NOSTRIL SCH (07:46)
[2021-09-13] MEDS: HEPARIN SODIUM,PORCINE/PF 5,000 UNIT/0.5 ML SYRINGE SQ SCH ×2 (07:46→20:23)
[2021-09-13] MEDS: ARIPiprazole 10 MG TAB PO SCH (07:47)
[2021-09-13] MEDS: PANTOPRAZOLE 40 MG TABLET PO SCH ×2 (07:47→16:46)
[2021-09-13] MEDS: FOLIC ACID 1 MG TAB PO SCH (07:47)
[2021-09-13] MEDS: levETIRAcetam 500 MG TAB PO SCH ×2 (07:47→20:23)
[2021-09-13 10:13] LABS: Basophils # (A) 0.03 X 10*3/uL (0.00-0.10); Basophils % (A) 0.2 %; Eosinophils % (A) 0.7 %; HCT 43.7 % (37.2-46.3); HGB 14.5 g/dL (12.0-15.0); MCH 27.6 pg (27.0-32.0); MCHC 33.2 g/dL (32.0-37.0); MCV 83.1 fL (80.0-97.0); Mean Platelet Volume 9.6 fL (9.5-12.2); Monocytes # (A) 0.87 X 10*3/uL (0.20-1.00); Monocytes % (A) 6.3 %; Neutrophils # (A) 9.19 X 10*3/uL (1.80-7.70); Neutrophils % (A) 66.3 %; Platelet Count 426 X 10*3/uL (140-440); RBC 5.26 X 10*6/uL (4.10-5.20); RDW 13.2 % (11.5-14.5); WBC 13.86 X 10*3/uL (4.50-10.00)
--- NOTE | 2021-09-13 11:26 | CT ---
EXAMINATION TYPE: CT sinus wo con DATE OF EXAM: 09/13/2021 COMPARISON: None HISTORY: 30-year-old female with drug overdose, altered mental status, confusion, Nasal Discharge CT DLP: 368.2 mGycm Automated exposure control for dose reduction was used. TECHNIQUE: Noncontrast axial views of the paranasal sinuses were obtained. Coronal reconstructions pe rformed. FINDINGS: PARANASAL SINUSES: There is only trace mucosal thickening in the ethmoid air cells. Frontal, maxillary, and sphenoid sinuses are well pneumatized. There is no air-fluid level. Reactive lencho- osteogenesis is not seen. There is no destruction of the osseous naik of the paranasal sinuses. THE NASAL CAVITY: The osteomeatal complexes are patent. There is leftward deviation of the anterior nasal septum. Interposed between the right nasal septum a nd right inferior turbinate, there is an area of 1.0 cm soft tissue thickening, refer to coronal imag e 20 and axial image 12. The imaged brain and orbits are normal in appearance. Mastoid air cells and middle ear cavities are well pneumatized. Reformatted images confirm above findings. IMPRESSION: 1. Only trace mucosal thickening in the ethmoid air cells. 2. Leftward deviation of the anterior nasal septum. 3. 1 cm soft tissue thickening versus adherent mucous/debris interposed between the right side of the nasal septum and right inferior turbinate. If nasal discharge persists, consider direct visualizati on.
--- NOTE | 2021-09-13 18:38 | PN ---
PROGRESS NOTE DATE OF SERVICE: 09/13/2021 REASON FOR FOLLOWUP: Leukocytosis. INTERVAL HISTORY: The patient is afebrile. The patient is feeling better, breathing comfortably. The patient denies having any chest pain. No shortness of breath or cough. No abdominal pain, no diarrhea. PHYSICAL EXAMINATION: Blood pressure 132/89 with a pulse of 98, temperature 99.1. She is 100% on room air. General description is a middle-aged female lying in bed in no distress. Respiratory system: Unlabored breathing, clear to auscultation anteriorly. Heart S1, S2. Regular rate and rhythm. Abdomen soft, no tenderness. Extremities: No edema of the feet. LABS: Hemoglobin is 14.8, white count down to 13.8. Cultures have been negative. DIAGNOSTIC IMPRESSION AND PLAN: Patient with elevated white count. She did have extensive workup to include chest x- ray negative. Urine is negative. Blood culture negative. CT abdomen and pelvis negative. White count trending down with Unasyn. Transition to short course of oral Augmentin on discharge. Continue supportive care. MMODL / IJN: [id number] /
[2021-09-13] MEDS ORDERED: LORazepam 1 MG TAB PO STA (19:28)
[2021-09-13] MEDS: SODIUM CHLORIDE 0.9% 1,000 ML IV SCH (20:22)
[2021-09-13] MEDS: traZODone HCL 50 MG TAB PO SCH (20:22)
[2021-09-14] MEDS: AMPICILLIN-SULBACTAM 3 GM in SODIUM CHLORIDE 0.9% 100 ML IVPB SCH ×2 (00:13→05:39)
[2021-09-14] MEDS: SODIUM CHLORIDE 0.9% 1,000 ML IV SCH ×2 (00:14→10:15)
[2021-09-14] MEDS: ACETAMINOPHEN TAB 325 MG TAB PO PRN (05:40)
[2021-09-14] MEDS: HEPARIN SODIUM,PORCINE/PF 5,000 UNIT/0.5 ML SYRINGE SQ SCH (07:42)
[2021-09-14] MEDS: FOLIC ACID 1 MG TAB PO SCH (07:42)
[2021-09-14] MEDS: ARIPiprazole 10 MG TAB PO SCH (07:42)
[2021-09-14] MEDS: levETIRAcetam 500 MG TAB PO SCH (07:42)
[2021-09-14] MEDS: FLUTICASONE 50MCG/SPRAY NASAL 16GM EA NOSTRIL SCH (07:42)
[2021-09-14] MEDS: PANTOPRAZOLE 40 MG TABLET PO SCH (07:42)
[2021-09-14 08:36] VITALS: BP 151/109; PULSE 81; RESP 18; TEMP 98.3
--- NOTE | 2021-10-06 13:15 | P.DS ---
Providers Date of admission: 09/09/21 07:52 Attending physician: Nellie Vu MD Consults: 09/06/21 15:50 Consult Physician Routine Consulting Provider: Carmelo Murillo Consult Reason/Comments: Flight of ideas, drug overdose Do you want consulting provider notified?: Yes, Notify in am 09/09/21 12:03 Consult Physician Urgent Consulting Provider: Doris Gee Consult Reason/Comments: drowsiness, possible seizure Do you want consulting provider notified?: Yes 09/09/21 21:49 Consult Physician Urgent Consulting Provider: Leonel Mai Consult Reason/Comments: possible uti with leukocytosis Do you want consulting provider notified?: Yes 09/13/21 12:46 Consult Physician Urgent Consulting Provider: John Paul Rodríguez Consult Reason/Comments: mucous plug in the nose, sinusitis, h/o sniffing drugs Do you want consulting provider notified?: Yes Primary care physician: Stated None Hospital Course: Diagnoses: Drug overdose, patient has been cleared by psychiatrist for discharge acute bacterial rhinitis, with mucous plugging. Improving Seizure-like activity. Suspected due to Geodon side effects. Geodon stopped. seizure prophylaxis provided upon discharge Leukocytosis. improved with treatment of infection Cannabis use disorder Hospital course: This is a pleasant 30 years old female with multiple problems presents with altered mental status possible drug overdose. She took unknown substance at [place]. Patient was admitted with psych team consult. Psychiatric team adjusted medication and signed off after they increased Abilify 10 mg daily for mood stabilization. decreased Trazodone 25 mg daily at bedtime for insomnia/mood. Patient psychiatric condition remained stable. There was suspicion of seizure like activity.Patient was started on Keppra for seizure prophylaxis by neurologist. EEG is negative. Patient also with leukocytosis and nasal discharge, sinusitis/rhinitis is suspected especially she admits sniffen drugs. CT of the sinus showed 1 cm soft tissue thickening versus adherent mucosa/debris interposed between the right side of the nasal septum on the right inferior turbinate. Nasal discharge pers ists, consider direct visualization. We contacted ENT specialist Dr. Peralta on-call who reviewed her CT and recommended patient to be discharged and follow- up with his office as an outpatient. However with antibiotic treatment her symptoms significantly improved and leukocytosis was trending down. Patient informed that she wants to make her own appointments and follow-up as an outpatient Infectious disease consult was obtained and patient was treated with antibiotic Unasyn and switched to Augmentin upon discharge per ID team consultatio. Other workup was negative including CT of the abdomen and pelvis and repeat chest x- ray. On the day of discharge patient was fully awake and oriented, her symptoms are significantly improved, no nasal discharge. No fever. No chest pain or dyspnea or significant coughing. No abdominal pain. No diarrhea or vomiting, diet. She denies any urinary symptoms. and gait is normal. Patient is back to her baseline and she agrees to go home today. Patient was cleared for discharge by all consultants including psychiatrist, neurologist and ID team. Problems and management plan were discussed with the patient and he verbalized understanding and acceptance Patient was found stable and can be discharged home however he needs follow-up as an outpatient. Patient was instructed to follow up with PCP within one week and patient agrees Physical exam Gen: patient is a AAOx3, no distress. -Head and neck: Pupils are equal and reactive to light. No nasal erythema. There is a discharge significantly improved on minimal. Paranasal tenderness which is improving. CVS: S1-S2, RRR, no murmur Lungs: B/L CTA, no wheezing Abdomen: soft, no distention, no tenderness, positive bowel sounds Extremity: no leg edema or induration Time spent more than 35 minutes Note: Discharged yesterday was held because patient did not have her keep her place. Today she confirms to me she called her significant other who informed her that neighbors has another copy of the fitzgerald and then she called her neighbor and confirmed that they got the fitzgerald for her house and she can go diabetic up today. Staff. Patient with transportation if needed. Patient is agreeable and can go home today Patient Condition at Discharge: Fair Plan - Discharge Summary Discharge Rx Participant: No New Discharge Prescriptions: New Sodium Chloride 0.65% Nasal [Deep Sea (Saline)] 2 spray NASAL QID PRN 10 Days #10 ml PRN Reason: Dry Nasal Passages Fluticasone Nasal Kathryn [Flonase Nasal Kathryn] 2 spray EA NOSTRIL DAILY 3 Days #10 ml Amoxicillin/Potassium Clav [Augmentin 875-125 Tablet] 1 tab PO BID 7 Days #14 tab Cyanocobalamin [Vitamin B-12] 1,000 mcg PO DAILY 30 Days #30 tablet traZODone HCL [Desyrel] 25 mg PO HS #30 tab ARIPiprazole [Abilify] 10 mg PO DAILY #30 tab Benzocaine/Menthol Lozeng [Cepacol lozenge] 1 each MUCOUS MEM Q4HR PRN #20 lozenge PRN Reason: Sore Throat Folic Acid 1 mg PO DAILY #30 tab levETIRAcetam [Keppra] 500 mg PO Q12HR #60 tab Continue ondansetron HCL [Zofran] 8 mg PO Q6H PRN PRN Reason: Nausea And Vomiting cloNIDine HCL [Catapres] 0.1 mg PO Q4H PRN PRN Reason: Anxiety Calcium/Magnesium/Zinc/Vitamin D3 334/134/5mg 1 tab PO TID Zofran 2mg/Ml Im Solution 4 mg IM Q6H PRN PRN Reason: Nausea Acetaminophen Tab [Tylenol] 650 mg PO TID PRN PRN Reason: Fever And/ Or Pain traZODone HCL 50 - 150 mg PO HS PRN PRN Reason: Insomnia Ibuprofen [Motrin Ib] 600 mg PO Q6H PRN 3 Days #0 PRN Reason: Fever And/ Or Pain Discontinued Chlorpheniramine Maleate [Chlor-Trimeton] 4 mg PO Q4H PRN PRN Reason: Allergy Symptoms Discharge Medication List Acetaminophen Tab [Tylenol] 650 mg PO TID PRN 09/06/21 [History] Calcium/Magnesium/Zinc/Vitamin D3 334/134/5mg 1 tab PO TID 09/06/21 [History] Zofran 2mg/Ml Im Solution 4 mg IM Q6H PRN 09/06/21 [History] cloNIDine HCL [Catapres] 0.1 mg PO Q4H PRN 09/06/21 [History] ondansetron HCL [Zofran] 8 mg PO Q6H PRN 09/06/21 [History] traZODone HCL 50 - 150 mg PO HS PRN 09/06/21 [History] ARIPiprazole [Abilify] 10 mg PO DAILY #30 tab 09/13/21 [Rx] Amoxicillin/Potassium Clav [Augmentin 875-125 Tablet] 1 tab PO BID 7 Days #14 tab 09/13/21 [Rx] Benzocaine/Menthol Lozeng [Cepacol lozenge] 1 each MUCOUS MEM Q4HR PRN #20 lozenge 09/13/21 [Rx] Cyanocobalamin [Vitamin B-12] 1,000 mcg PO DAILY 30 Days #30 tablet 09/13/21 [Rx] Fluticasone Nasal Kathryn [Flonase Nasal Kathryn] 2 spray EA NOSTRIL DAILY 3 Days #10 ml 09/13/21 [Rx] Folic Acid 1 mg PO DAILY #30 tab 09/13/21 [Rx] Ibuprofen [Motrin Ib] 600 mg PO Q6H PRN 3 Days #0 09/13/21 [Rx] Sodium Chloride 0.65% Nasal [Deep Sea (Saline)] 2 spray NASAL QID PRN 10 Days #10 ml 09/13/21 [Rx] levETIRAcetam [Keppra] 500 mg PO Q12HR #60 tab 09/13/21 [Rx] traZODone HCL [Desyrel] 25 mg PO HS #30 tab 09/13/21 [Rx] Follow up Appointment(s)/Referral(s): Alexia Blair MD [REFERRING] - 1 Week (neurologist) Kalina Claudio MD [Medical Doctor] - 1 Week (neurologist) None,Stated [Primary Care Provider] - 1-2 days Ashtyn Blair MD [REFERRING] - 1 Week (neurologist) John Paul Rodríguez MD [STAFF PHYSICIAN] - 1 Week (ENT doctor) Leonel Mai MD [STAFF PHYSICIAN] - 1 Week (ID doctor) Activity/Diet/Wound Care/Special Instructions: resume your previous diet activity is restricted till you see your doctor Discharge Disposition: HOME SELF-CARE
== END 2021-09-14 11:23 | disposition home or self-care (01) | DRG 917 ==
LOC: EC 12:14 → 6NMEDSUR 15:51 → 4SSUR 16:03 → OBSVTOIN 09-09 07:52
PROVIDERS: ADMIT Internal Medicine; ATTEND Internal Medicine
DX: T43.591A Poisoning by other antipsychotics and neuroleptics, accidental (unintentional), initial encounter (principal); G93.41 Metabolic encephalopathy; E87.1 Hypo-osmolality and hyponatremia; N39.0 Urinary tract infection, site not specified; G40.909 Epilepsy, unspecified, not intractable, without status epilepticus; F39 Unspecified mood [affective] disorder; E83.51 Hypocalcemia; G47.00 Insomnia, unspecified; E86.0 Dehydration; E87.6 Hypokalemia; F11.10 Opioid abuse, uncomplicated; F17.200 Nicotine dependence, unspecified, uncomplicated; I10 Essential (primary) hypertension; J00 Acute nasopharyngitis [common cold]; Z79.899 Other long term (current) drug therapy
CPT/HCPCS: 36415; 70450; 70486; 71045; 71046; 74018; 74177; 80048; 80053; 80143; 80179; 80306; 80320; 81001; 81025; 82075; 82550; 82553; 82607; 82746; 83605; 83735; 83921; 84132; 84145; 84207; 84425; 84443; 84703; 85025; 85610; 86140; 86780; 87040; 87086; 87635; 93005; 94760; 95816; 96360; 96361; 99285